=== PATIENT | male | born 1990 | race Caucasian/White ===

== ENCOUNTER 2017-05-14 20:42 | Emergency (ER) | payer MEDICAID ==
--- NOTE | 2017-05-15 00:25 | ER Document Report ---
ED General - General Mode of Arrival: Ambulatory Information source: Patient TRAVEL OUTSIDE OF THE [place] IN LAST 30 DAYS: No - HPI Onset: Other - Refer to HPI notes Similar symptoms previously: No Recently seen / treated by doctor: No - General Chief Complaint: Abscess Stated Complaint: POSSIBLE INSECT BITE Time Seen by Provider: 05/14/17 23:43 Notes: Patient is a 27-year-old male presenting to the emergency department for possible spider bite. Patient did not see either and denies any recent tick bite. Patient states that he denies any pimple about 2 days ago to his right groin. Patient states that since 2 days ago the area has increased in pain. Patient states that he has had previous I&D for abscess on his right arm and buttocks x3. Patient states he was placed on antibiotics but is unsure if his abscesses were positive for MRSA. Patient has no known allergies. Patient's PCP is Dr. Ramon. ([facility]) - Related Data Allergies/Adverse Reactions: No Known Allergies Allergy (Verified 06/22/14 00:26) Past Medical History - General Information source: Patient - Social History Smoking Status: Unknown if Ever Smoked Family History: None Patient has suicidal ideation: No Patient has homicidal ideation: No Pulmonary Medical History: Reports: Hx Bronchitis, Hx Sleep Apnea - Immunizations Hx Diphtheria, Pertussis, Tetanus Vaccination: Yes Review of Systems - Review of Systems Constitutional: No symptoms reported EENT: No symptoms reported Cardiovascular: No symptoms reported Respiratory: No symptoms reported Gastrointestinal: No symptoms reported Genitourinary: No symptoms reported Male Genitourinary: No symptoms reported Musculoskeletal: No symptoms reported Skin: See HPI Hematologic/Lymphatic: No symptoms reported Neurological/Psychological: No symptoms reported -: Yes All other systems reviewed and negative Physical Exam - Vital signs Interpretation: Hypertensive - Vital signs Vitals: Temp Pulse Resp BP Pulse Ox 99.4 F 87 18 150/99 H 97 05/14/17 20:48 05/14/17 20:48 05/14/17 20:48 05/14/17 20:48 05/14/17 20:48 - Notes Notes: GENERAL: Alert, interacts well. No acute distress. HEAD: Normocephalic, atraumatic. EYES: Appear normal. Pupils equal, round, and reactive to light. ENT: Moist mucus membranes, tongue midline. NECK: Full range of motion. Supple. Trachea midline. LUNGS: Clear to auscultation bilaterally, no wheezes, rales, or rhonchi. No respiratory distress. HEART: Regular rate and rhythm. No murmurs, gallops, or rubs. ABDOMEN: Soft, non-tender. Non-distended. Normal bowel sounds. EXTREMITIES: Moves all 4 extremities spontaneously. Normal strength. No edema. NEUROLOGICAL: Alert and oriented x3. Normal speech. No focal neurological deficits. GSC 15. PSYCH: Normal affect, normal mood. SKIN: Warm, dry, normal turgor. Small central area of induration to the right groin, no fluctuance, circular area of ecchymosis around the induration. No acute superficial spreading cellulitis, crepitus, or necrosis. This does not go into the groin or his testicular region good indurated area to his right thigh with a central area of bite araceli. It is indurated but not fluctuant he has a circular area of ecchymosis around that but no acute superficial spreading cellulitis crepitus or necrosis. This does not go into his groin or his testicular region good pulses perfusion and sensation. (BETSEY JORDAN) Course - Re-evaluation Re-evalutation: 05/15/17 00:35 Patient presents emergency department with a chief complaint I think I have a spider bite on my leg. Patient is a nondiabetic obese male patient that noticed a pimple on his inner thigh 2 days ago it is now swollen and bruised. He has no idea what bit him but mentioned a spider bite. He has had multiple abscesses in the past that required incision and drainage and has seen a surgeon in [place] for one on his sacrum. Denies knowing whether he has a history of MRSA. On examination he has an indurated area to his right thigh with a central area of bite araceli. It is indurated but not fluctuant he has a circular area of ecchymosis around that but no acute superficial spreading cellulitis crepitus or necrosis. This does not go into his groin or his testicular region good pulses perfusion and sensation. At this time it is not ready to be drained it is indurated. And give him a dose of clindamycin here start him on clindamycin 2-3 day follow-up with his primary care physician and discussed reasons for ED return sooner (MATTHEW VEGA) - Vital Signs Vital signs: Temp Pulse Resp BP Pulse Ox 99.0 F 78 16 142/84 H 98 05/15/17 00:50 05/15/17 00:50 05/15/17 00:50 05/15/17 00:50 05/15/17 00:50 Discharge - Discharge Clinical Impression: Cellulitis right inner thigh Condition: Stable Disposition: HOME, SELF-CARE Instructions: MRSA Cellulitis ([facility]) Additional Instructions: Cellulitis You have an infection of your skin and underlying soft tissues called cellulitis. This is due to bacteria, which can enter through any break in the skin, or even through an irritated hair follicle. Untreated, cellulitis will usually worsen. Antibiotics are required. Usually, warm packs or warm soaks, and elevation of the infected area are recommended. You should start getting better within 24 to 36 hours. Most infections respond quickly to the right medication. Follow-up care is important, however, to check for abscess (boil) formation, unsuspected foreign body, or resistant infection. If you develop fever, chills, or if the area of infection is becoming rapidly more swollen or painful, call the doctor at once. Follow-up with your primary care physician Dr. Ramon in 2-3 days return for increasing worsening or new symptoms Prescriptions: Clindamycin HCl 300 mg PO BID #14 capsule Forms: Return to Work Scribe Attestation: 05/15/17 00:35 I personally performed the services described in the documentation reviewed the documentation recorded by my scribe in my presence and it accurately and completely records my words and actions (MATTHEW VEGA) Scribe Documentation - Scribe Written by Andrew:: Andrew Rowe, 05/15/17 2:41 acting as scribe for :: John
[2017-05-15] MEDS ORDERED: HYDROCODONE/ACETAMINOPHEN 5-325 MG 6 TAB/DSPK PO PRN (00:37)
[2017-05-15 01:15] VITALS: BP 142/84
== END 2017-05-15 00:50 | disposition home or self-care (01) ==
LOC: ER 20:42
DX: L03.115 Cellulitis of right lower limb (principal); E66.9 Obesity, unspecified
CPT/HCPCS: 99283

== ENCOUNTER 2017-12-12 09:53 | Emergency (ER) | payer MEDICAID, OTHER ==
[2017-12-12] MEDS ORDERED: LIDOCAINE 5% (700 MG) TRANSDERMAL ADH..PATCH TP ONE (10:32)
[2017-12-12] MEDS ORDERED: KETOROLAC TROMETHAMINE 60 MG/2 ML SDV IM ONE (10:32)
[2017-12-12] MEDS ORDERED: PREDNISONE 20 MG TABLET PO ONE (10:32)
--- NOTE | 2017-12-12 10:40 | ER Document Report ---
ED General - General Chief Complaint: Back Pain Stated Complaint: LOWER BACK PAIN Time Seen by Provider: 12/12/17 10:31 TRAVEL OUTSIDE OF THE [place] IN LAST 30 DAYS: No - HPI Patient complains to provider of: Right side sciatic pain Notes: Patient with a history of sciatica states flare last few days. Patient states he did have trouble falling approximately a week ago. Patient states currently pain management has been taking his meloxicam and Flexeril however states at this time minimal relief. Patient upon my evaluation is lying on his stomach. Patient amatory here in ER. Patient states pain mostly in the right gluteus linda the going down to his right foot. Patient denies fevers chills nausea vomiting denies any urinary are bowel incontinence - Related Data Allergies/Adverse Reactions: No Known Allergies Allergy (Verified 12/12/17 10:19) Past Medical History - Social History Smoking Status: Current Every Day Smoker Frequency of alcohol use: Social Drug Abuse: Marijuana Family History: Reviewed & Not Pertinent Patient has suicidal ideation: No Patient has homicidal ideation: No Pulmonary Medical History: Reports: Hx Bronchitis, Hx Sleep Apnea Renal/ Medical History: Denies: Hx Peritoneal Dialysis - Immunizations Hx Diphtheria, Pertussis, Tetanus Vaccination: Yes Review of Systems - Review of Systems Constitutional: No symptoms reported EENT: No symptoms reported Cardiovascular: No symptoms reported Respiratory: No symptoms reported Gastrointestinal: No symptoms reported Genitourinary: No symptoms reported Male Genitourinary: No symptoms reported Musculoskeletal: Back pain Skin: No symptoms reported Hematologic/Lymphatic: No symptoms reported Neurological/Psychological: No symptoms reported Physical Exam - Vital signs Vitals: Temp Pulse Resp BP Pulse Ox 98.6 F 94 18 149/92 H 97 12/12/17 09:57 12/12/17 09:57 12/12/17 09:57 12/12/17 09:57 12/12/17 09:57 Interpretation: Normal - General General appearance: Appears well, Alert - HEENT Head: Normocephalic, Atraumatic Eyes: Normal Pupils: PERRL - Respiratory Respiratory status: No respiratory distress Chest status: Nontender Breath sounds: Normal Chest palpation: Normal - Cardiovascular Rhythm: Regular Heart sounds: Normal auscultation Murmur: No - Abdominal Inspection: Normal Distension: No distension Bowel sounds: Normal Tenderness: Nontender Organomegaly: No organomegaly - Back Back: Normal, Nontender Notes: Tenderness reproduction of symptoms palpation of middle of the right gluteus linda. Patient also has minimal right paraspinal tenderness. No numbness or tingling appreciated. Patient has no symptoms on the left - Extremities General upper extremity: Normal inspection, Nontender, Normal color, Normal ROM , Normal temperature General lower extremity: Normal inspection, Nontender, Normal color, Normal ROM , Normal temperature, Normal weight bearing. No: Josie's sign - Neurological Neuro grossly intact: Yes Cognition: Normal Orientation: AAOx4 [place] Coma Scale Eye Opening: Spontaneous David Coma Scale Verbal: Oriented [place] Coma Scale Motor: Obeys Commands [place] Coma Scale Total: 15 Speech: Normal Motor strength normal: LUE, RUE, LLE, RLE Sensory: Normal - Psychological Associated symptoms: Normal affect, Normal mood - Skin Skin Temperature: Warm Skin Moisture: Dry Skin Color: Normal Course - Re-evaluation Re-evalutation: 12/12/17 14:43 The patient presents with low back pain without signs of spinal cord compression , cauda equina syndrome, infection, aneurysm, or other serious etiology. The patient is neurologically intact. Given the extremely low risk of these diagnoses further testing and evaluation for these possibilities does not appear to be indicated at this time. The patient has been instructed to return if the symptoms worsen or change in any way. Upon evaluating the patient states the patient that I agree with this assessment acute sciatica flare. Explained that we would need to start him on medication such as steroids and anti-inflammatories. Patient responds "ya doc i know the deal just get the meds ". Review of the narcotic database shows patient is not receiving any narcotic prescriptions patient was given Ultram for pain control patient was encouraged follow-up with his pain management. - Vital Signs Vital signs: Temp Pulse Resp BP Pulse Ox 98.0 F 78 18 154/104 H 96 12/12/17 10:50 12/12/17 10:50 12/12/17 10:50 12/12/17 10:50 12/12/17 10:50 Discharge - Discharge Clinical Impression: Sciatic pain right side Condition: Good Disposition: HOME, SELF-CARE Instructions: Ice Packs ([facility]), Low Back Pain ([facility]), Oral Narcotic Medication ( [facility]), Sciatica ([facility]), Warm Packs ([facility]) Additional Instructions: Please follow-up with your primary care physician and pain management clinic. Return to the ER symptoms worsen take medications as prescribed Prescriptions: Prednisone [Deltasone] 60 mg PO DAILY #24 tablet Tramadol HCl [Ultram 50 mg Tablet] 50 mg PO ASDIR PRN #20 tablet PRN Reason: Forms: Return to Work Referrals: MARCOS MERAZ MD [Primary Care Provider] - Follow up as needed
[2017-12-12 10:54] VITALS: BP 154/104
== END 2017-12-12 10:54 | disposition home or self-care (01) ==
LOC: ER 09:53
DX: M54.41 Lumbago with sciatica, right side (principal); F17.200 Nicotine dependence, unspecified, uncomplicated
CPT/HCPCS: 99283; 96372; J1885; J3490; J7512

== ENCOUNTER 2018-02-17 14:38 | Emergency (ER) | payer MEDICAID, OTHER ==
[2018-02-17] MEDS ORDERED: KETOROLAC TROMETHAMINE INJ/PF 30 MG/1 ML SDV IM ONE (15:35)
[2018-02-17] MEDS ORDERED: CYCLOBENZAPRINE HCL 10 MG TABLET PO ONE (15:35)
[2018-02-17] MEDS ORDERED: DEXAMETHASONE SOD PHOS INJ 10 MG/1 ML VIAL IM ONE (15:35)
[2018-02-17 15:38] VITALS: BP 149/99
--- NOTE | 2018-02-17 15:41 | ER Document Report ---
ED Neck/Back Problem - General Chief Complaint: Low Back Pain Stated Complaint: BACK PAIN Time Seen by Provider: 02/17/18 15:20 Mode of Arrival: Ambulatory Information source: Patient Notes: 28-year-old male presented to ED for complaint of chronic back pain. He states she is unable to see his pain management today and came to the ER for any kind of pain relief he could get. He states he has no new injury this is a flareup of his chronic pain. Is no numbness or tingling to the legs no loss of control of bowel bladder no saddle anesthesia. He states the pain increased on third and a child uses normal pain medicine but nothing was helping. TRAVEL OUTSIDE OF THE [place] IN LAST 30 DAYS: No - HPI Patient complains to provider of: Lower back Onset: Other - Chronic started increasing on Onset: Chronic Timing: Still present Quality of pain: Sharp, Throbbing Severity: Severe Pain Level: 5 Recent injury: No Associated symptoms: Like prior neck/back pain, Radiation to leg, Lower back pain. denies: Radiation to arm, Radiation to chest, Sensory loss, Unable to urinate, Upper back pain Exacerbated by: Movement of trunk, Sitting position Relieved by: Nothing Similar symptoms previously: Yes Recently seen / treated by doctor: Yes - Related Data Allergies/Adverse Reactions: No Known Allergies Allergy (Verified 02/17/18 14:40) Past Medical History - General Information source: Patient - Social History Smoking Status: Current Every Day Smoker Cigarette use (# per day): Yes - Cigarettes a day Chew tobacco use (# tins/day): No Smoking Education Provided: Yes - 4 minutes Frequency of alcohol use: Social Drug Abuse: Marijuana - Daily Lives with: Spouse/Significant other Family History: Reviewed & Not Pertinent Patient has suicidal ideation: No Patient has homicidal ideation: No - Past Medical History Cardiac Medical History: Reports: None Pulmonary Medical History: Reports: Hx Bronchitis, Hx Sleep Apnea Neurological Medical History: Reports: None Endocrine Medical History: Reports: None Renal/ Medical History: Reports: None Malignancy Medical History: Reports None GI Medical History: Reports: None Musculoskeltal Medical History: Reports Hx Arthritis, Reports Hx Musculoskeletal Deformity, Reports Hx Musculoskeletal Trauma Skin Medical History: Reports None Psychiatric Medical History: Reports: None Infectious Medical History: Reports: None Surgical Hx: Negative Past Surgical History: Reports: None - Immunizations Hx Diphtheria, Pertussis, Tetanus Vaccination: Yes Review of Systems - Review of Systems Constitutional: No symptoms reported EENT: No symptoms reported Cardiovascular: No symptoms reported Respiratory: No symptoms reported Gastrointestinal: No symptoms reported Genitourinary: No symptoms reported Male Genitourinary: No symptoms reported Musculoskeletal: Back pain, Muscle pain, Muscle stiffness Skin: No symptoms reported Hematologic/Lymphatic: No symptoms reported Neurological/Psychological: No symptoms reported Physical Exam - Vital signs Vitals: Temp Pulse Pulse Ox 98.9 F 80 97 02/17/18 14:58 02/17/18 14:58 02/17/18 14:58 Interpretation: Normal - General General appearance: Appears well, Alert - HEENT Head: Normocephalic, Atraumatic Eyes: Normal Pupils: PERRL - Respiratory Respiratory status: No respiratory distress Chest status: Nontender Breath sounds: Normal Chest palpation: Normal - Cardiovascular Rhythm: Regular Heart sounds: Normal auscultation Murmur: No - Abdominal Inspection: Normal Distension: No distension Bowel sounds: Normal Tenderness: Nontender Organomegaly: No organomegaly - Back Back: Normal, Tender, Vertebra tenderness. No: Deformity/step-off, CVA tenderness, Scars, Scoliosis, Wounds - Extremities General upper extremity: Normal inspection, Nontender, Normal color, Normal ROM , Normal temperature General lower extremity: Normal inspection, Nontender, Normal color, Normal ROM , Normal temperature, Normal weight bearing. No: Josie's sign - Neurological Neuro grossly intact: Yes Cognition: Normal Orientation: AAOx4 [place]enn[place] Coma Scale Eye Opening: Spontaneous [place]enn[place] Coma Scale Verbal: Oriented David Coma Scale Motor: Obeys Commands David Coma Scale Total: 15 Speech: Normal Motor strength normal: LUE, RUE, LLE, RLE Sensory: Normal - Psychological Associated symptoms: Normal affect, Normal mood - Skin Skin Temperature: Warm Skin Moisture: Dry Skin Color: Normal Course - Re-evaluation Re-evalutation: 02/17/18 15:41 After performing a Medical Screening Examination, I estimate there is LOW risk for EXPANDING OR RUPTURED ABDOMINAL AORTIC ANEURYSM, CAUDA EQUINA SYNDROME, EPIDURAL MASS LESION, or HERNIATED DISK CAUSING SEVERE SPINAL STENOSIS, thus I consider the discharge disposition reasonable. I have reevaluated this patient multiple times and no significant life threatening changes are noted. The patient and I have discussed the diagnosis and risks, and we agree with discharging home and close follow-up. We also discussed returning to the Emergency Department immediately if new or worsening symptoms occur with the understanding that symptoms and presentations can change. We have discussed the symptoms which are most concerning (e.g., saddle anesthesia, urinary or bowel incontinence or retention, changing or worsening pain) that necessitate immediate return. - Vital Signs Vital signs: Temp Pulse Resp BP Pulse Ox 98.9 F 80 149/99 H 97 02/17/18 14:58 02/17/18 14:58 02/17/18 15:37 02/17/18 14:58 Discharge - Discharge Clinical Impression: Chronic low back pain with bilateral sciatica Qualifiers: Back pain laterality: bilateral Qualified Code(s): M54.42 - Lumbago with sciatica, left side Condition: Stable Disposition: HOME, SELF-CARE Instructions: Family Physicians / Practices Additional Instructions: Chronic Pain Control Stress, inactivity, and depression make pain more severe regardless of the cause of the pain. Stress and poor physical condition can cause pain such as headaches and backache. Relaxation: Rest in a quiet place with your eyes closed for 20 minutes twice daily. Concentrate on a pleasant image, or simply "feel" your breathing. Clear your mind. Stress management: Deal with your "stressors." Either take action, or eliminate the stressor from your life. Don't let things hang over you. Accept those things you can't change. Nutrition: Eat small, balanced meals -- don't skip, don't overeat. Meals should be high-carbohydrate, low-sugar, low-fat. Exercise: Exercise helps painful conditions and eases stress. Get 30 minutes of moderate exercise, five days a week. Do an activity that does not flare your pain. Precautions: Pain which continues to disrupt daily activities, or which changes in nature, requires a medical evaluation. Pain Clinic referral is available. We do not manage chronic pain in the Emergency Department. We will try to appropriately help you through an acute flare of your chronic painful condition , but for on-going chronic pain that does not improve, you will need to see your private doctor or powder coat painter. We do not provide repeated medication management of chronic painful conditions. If you wish, we can provide the name of local pain management physicians. Chronic Back Pain Chronic back pain (pain persisting longer than three months) is a common problem. A medical evaluation can look for herniated disc, arthritis, osteoporosis, tumors, and infections. But at least half the time, there's no obvious treatable cause. Anxiety and depression tend to worsen back pain. Ibuprofen or other anti-inflammatory medicine can help. A heating pad, used for 15-20 minutes at a time, can ease pain. For this type of back pain, narcotic medicines should be avoided. Muscle relaxers are rarely helpful unless you're having spasms. Activity is important. Find an aerobic exercise program that your back can tolerate. Too much rest makes back pain worse. Specific back exercises are usually prescribed to strengthen the back and abdominal muscles. Often, a physical therapist can help. Avoid heavy lifting, working while bent over, or standing with both knees straight. Most back pain patients do better with a firm mattress. If new symptoms of a "herniated disc" (radiation of pain, numbness, or tingling down the back of the leg or weakness in the leg) occur, you should be re-examined. Toradol Injection You have been given an injection of ketorolac tromethamine (Toradol). This is an excellent, safe drug for pain control. It also has potent antiinflammatory action. You should have significant pain relief within about one hour. Toradol is not addicting and is non-sedating. It does not interfere with driving or work. Call or return if you develop itching, hives, shortness of breath, or rash. STEROID MEDICATION: You have been given an injection of medicine of the cortisone/steroid class. This medication is used to control inflammation or allergy. It is often continued as a pill for a short period of time, until the acute process subsides. There are usually no side effects from short-term use of cortisone-like medications. Some persons feel an increased sense of well-being and are not sleepy at bedtime. Long-term use of cortisone medications is best avoided, unless required for a severe condition. If your condition does not remit, or relapses after the course of corticosteroid medication, you should consult your physician. Stretching Exercises for the Back The physician has recommended that you begin stretching exercises for your back. These are often used even while the back is painful. However, you should notify the physician if the activities seem to increase your pain. PELVIC TILT: Lie flat on your back with knees bent. Tighten your stomach and buttock muscles so it flattens your lower back against the floor. Hold 10 seconds. Repeat 10 times, twice daily. KNEE RAISE: Lying on the back with knees bent, raise one knee to your chest, then the other. Hold both knees against the chest 10 seconds, then lower one knee at a time. Repeat 10 times, twice daily. PARTIAL TRUNK RAISE: Lie face down, arms at your sides. Keeping your waist on the floor, use your arms raise your chest up. Support yourself on your elbows for 30 seconds. Repeat twice daily, increasing the time to two minutes as you recover. MUSCLE RELAXERS: Muscle relaxing medications are usually prescribed for acute muscle spasm or injury to the neck and back. They are often combined with antiinflammatory pain medication for increased relief. You may stop the muscle relaxer when the pain and stiffness have improved. Start the medication again if spasms recur. Muscle relaxers may cause drowsiness, especially with the first dose. Do not operate machinery or drive while under the effects of the medication. Most muscle relaxers last up to 24 hours. Do not combine the medication with alcohol. ICE PACKS: Apply ice packs frequently against the painful area. Many different schedules are recommended, such as "20 minutes on, 20 minutes off" or "one hour ice, two hours rest." If you need to work, you may need to go longer between ice treatments. You should plan to have the area ice packed AT LEAST one fourth of the time. The ice should be applied over the wrap, tape, or splint, or over a layer of cloth -- not directly against the skin. Some ice bags have a built-in cloth and can be put directly on the skin. WARM PACKS: After approximately two days, apply gentle heat (such as a heating pad or hot water bottle) for about 20 to 30 minutes about every two hours -- at least four times daily. Warmth and elevation will help you make a more rapid recovery , and will ease the pain considerably. Do not use HOT heat, and never apply heat for longer than 30 minutes. The continuous heat can invisibly damage skin and muscles -- even when no burn is seen on the surface. Damaged muscles can make you MORE sore. FOLLOW-UP CARE: If you have been referred to a physician for follow-up care, call the physician s office for an appointment as you were instructed or within the next two days. If you experience worsening or a significant change in your symptoms, notify the physician immediately or return to the Emergency Department at any time for re-evaluation. Please be sure to keep your appointment with your chronic pain management tomorrow. Have given you a list of the local primary doctors please find somebody to follow-up with your blood pressure. Forms: Smoking Cessation Education, Elevated Blood Pressure
== END 2018-02-17 15:48 | disposition home or self-care (01) ==
LOC: ER 14:38
DX: G89.29 Other chronic pain (principal); M54.42 Lumbago with sciatica, left side; M54.41 Lumbago with sciatica, right side; F17.210 Nicotine dependence, cigarettes, uncomplicated; Z71.6 Tobacco abuse counseling
CPT/HCPCS: 99406; 99283; 96372; J3490; J1885; J1100

== ENCOUNTER 2018-06-10 06:56 | Emergency (ER) | payer MEDICAID ==
--- NOTE | 2018-06-10 08:01 | ER Document Report ---
HPI - HPI Patient complains to provider of: low back pain Onset: Other - 2 days Pain Level: 5 Context: 28 yo obese male with exacerbation of chronic intermittent low back pain for 2 days. Worse with movement. Thinks he strained it. No fever or chills, no IV drug use, no radiculopathy or saddle anesthesia, no hx cancer. Associated Symptoms: None Exacerbated by: Movement Relieved by: Denies Similar symptoms previously: Yes Recently seen / treated by doctor: No - ROS ROS below otherwise negative: Yes Systems Reviewed and Negative: Yes All other systems reviewed and negative Past Medical History - General Information source: Patient - Social History Smoking Status: Never Smoker Lives with: Family Family History: Reviewed & Not Pertinent Patient has suicidal ideation: No Patient has homicidal ideation: No Pulmonary Medical History: Reports: Hx Bronchitis, Hx Sleep Apnea Renal/ Medical History: Denies: Hx Peritoneal Dialysis Musculoskeletal Medical History: Reports Hx Arthritis, Reports Hx Musculoskeletal Deformity, Reports Hx Musculoskeletal Trauma Surgical Hx: Negative - Immunizations Hx Diphtheria, Pertussis, Tetanus Vaccination: Yes Vertical Provider Document - CONSTITUTIONAL Agree With Documented VS: Yes Exam Limitations: No Limitations General Appearance: No Apparent Distress - INFECTION CONTROL TRAVEL OUTSIDE OF THE [place] IN LAST 30 DAYS: No - NECK Neck: Supple - BACK Back: Normal Inspection Notes: tender lumbar paraspinal muscles - MUSCULOSKELETAL/EXTREMETIES Musculoskeletal/Extremeties: [place] ORO - NEURO Level of Consciousness: Awake Motor/Sensory: No Motor Deficit, No Sensory Deficit Deep Tendon Reflexes: 2+ - bilateral patellar and ankle - DERM Integumentary: No Rash Course - Vital Signs Vital signs: Temp Pulse Resp BP Pulse Ox 97.8 F 74 16 152/106 H 94 06/10/18 07:03 06/10/18 07:03 06/10/18 07:03 06/10/18 07:03 06/10/18 07:03 Discharge - Discharge Clinical Impression: Exacerbation intermittent low back pain Condition: Good Disposition: HOME, SELF-CARE Instructions: Low Back Pain ([facility]), Muscle Relaxers ([facility]), Muscle Strain ([facility]), Steroid Medication Injection, Warm Packs ([facility]) Additional Instructions: warm compress Tylenol up to 4000 mg a day for pain Motrin 800 mg 3 times a day for pain and inflammation Flexeril 10 mg 3-day for muscle spasms Return to the emergency room for any worsening of the symptoms or any concerns. Referral to family practice doctor since she do not have one anymore. Prescriptions: Ibuprofen [Motrin 800 mg Tablet] 800 mg PO Q8HP PRN #30 tablet PRN Reason: Cyclobenzaprine HCl [Flexeril 10 Mg Tablet] 10 mg PO TIDP PRN #20 tablet PRN Reason: Tramadol HCl [Ultram 50 mg Tablet] 50 mg PO ASDIR PRN #15 tablet PRN Reason: Forms: Return to Work Referrals: DINORA DIAZ MD [ACTIVE STAFF] - Follow up as needed
[2018-06-10] MEDS ORDERED: KETOROLAC TROMETHAMINE 60 MG/2 ML SDV IM ONE (09:18)
[2018-06-10] MEDS ORDERED: DEXAMETHASONE SOD PHOS INJ 10 MG/1 ML VIAL IM ONE (09:18)
[2018-06-10 09:40] VITALS: BP 149/103
== END 2018-06-10 09:40 | disposition home or self-care (01) ==
LOC: ER 06:56
DX: G89.29 Other chronic pain (principal); M54.5 Low back pain
CPT/HCPCS: 99283; 96372; J1885; J1100

== ENCOUNTER 2018-07-24 20:38 | Emergency (ER) | payer SELFPAY ==
[2018-07-24] MEDS ORDERED: IBUPROFEN 800 MG TABLET PO ONE (22:49)
--- NOTE | 2018-07-24 23:19 | RADIOLOGY REPORT (SQ) ---
Lumbar spine five views HISTORY: Low back pain. FINDINGS: Vertebral body heights are intact. Alignment is intact. No subluxation. Pedicles are intact. IMPRESSION: No fracture.
--- NOTE | 2018-07-24 23:19 | RADIOLOGY REPORT (SQ) ---
CLINICAL HISTORY: fell 2 days ago pain low back and left toe COMPARISON: None. TECHNIQUE: XR FOOT 3 OR MORE VIEWS 07/24/2018 10:49 PM CDT FINDINGS: There is suggestion of a nondisplaced fracture transversely through the distal fifth phalanx. Joint spaces are preserved. Soft tissues are unremarkable. IMPRESSION: Possible distal fifth phalanx fracture. Correlate with point tenderness in this area.
--- NOTE | 2018-07-25 00:08 | ER Document Report ---
ED Neck/Back Problem - General Chief Complaint: Back Pain Stated Complaint: BACK PAIN Time Seen by Provider: 07/24/18 22:42 Mode of Arrival: Ambulatory Information source: Patient Notes: 28-year-old male presented ED for complaint of back pain after tripping and falling 2 days ago. Patient has a long history of chronic back pain. He also had complaints of pain to his left fifth toe. He states it hurts a little when he walks but he is able to ambulate with no difficulty. TRAVEL OUTSIDE OF THE [place] IN LAST 30 DAYS: No - HPI Patient complains to provider of: Pain, Lower back Onset: Other Where: Outdoors Onset: Chronic Timing: Still present Quality of pain: Achy Severity: Moderate Pain Level: 4 Context: Fall/near-fall Recent injury: Possibly Associated symptoms: Lower back pain, Other - Pain to the left fifth toe Exacerbated by: Movement of trunk, Sitting position, Other - Walking Relieved by: Nothing Similar symptoms previously: Yes - Related Data Allergies/Adverse Reactions: No Known Allergies Allergy (Verified 02/17/18 14:40) Past Medical History - General Information source: Patient - Social History Smoking Status: Former Smoker Cigarette use (# per day): No Chew tobacco use (# tins/day): No Smoking Education Provided: No Frequency of alcohol use: Occasional Drug Abuse: Other - States he used using the oil from marijuana Occupation: [employer] Lives with: Family Family History: Reviewed & Not Pertinent Patient has suicidal ideation: No Patient has homicidal ideation: No - Past Medical History Cardiac Medical History: Reports: None Pulmonary Medical History: Reports: Hx Bronchitis, Hx Sleep Apnea EENT Medical History: Reports: None Neurological Medical History: Reports: None Endocrine Medical History: Reports: None Renal/ Medical History: Reports: None Malignancy Medical History: Reports None GI Medical History: Reports: None Musculoskeletal Medical History: Reports Hx Arthritis, Reports Hx Musculoskeletal Deformity, Reports Hx Musculoskeletal Trauma Skin Medical History: Reports None Psychiatric Medical History: Reports: None Traumatic Medical History: Reports: Hx Fractures - 5th toe Infectious Medical History: Reports: None Past Surgical History: Reports: Other - Pilonidal cyst removal - Immunizations Hx Diphtheria, Pertussis, Tetanus Vaccination: Yes Review of Systems - Review of Systems Constitutional: No symptoms reported EENT: No symptoms reported Cardiovascular: No symptoms reported Respiratory: No symptoms reported Gastrointestinal: No symptoms reported Genitourinary: No symptoms reported Male Genitourinary: No symptoms reported Musculoskeletal: Back pain, Muscle pain, Muscle stiffness, Other - Pain to the left fifth toe Skin: No symptoms reported Hematologic/Lymphatic: No symptoms reported Neurological/Psychological: No symptoms reported -: Yes All other systems reviewed and negative Physical Exam - Vital signs Vitals: Temp Pulse Resp BP Pulse Ox 99.0 F 87 18 163/102 H 98 07/24/18 20:53 07/24/18 20:53 07/24/18 20:53 07/24/18 20:53 07/24/18 20:53 Interpretation: Normal - General General appearance: Appears well, Alert - HEENT Head: Normocephalic, Atraumatic Eyes: Normal Pupils: PERRL - Respiratory Respiratory status: No respiratory distress Chest status: Nontender Breath sounds: Normal Chest palpation: Normal - Cardiovascular Rhythm: Regular Heart sounds: Normal auscultation Murmur: No - Abdominal Inspection: Normal Distension: No distension Bowel sounds: Normal Tenderness: Nontender Organomegaly: No organomegaly - Back Back: Normal, Tender, Vertebra tenderness - The pain is to the left and right lower back muscles very minimal tenderness to the lumbar spine. No signs or symptoms of cauda equina, no loss of control of bowel or bladder seizure, no loss of control of lower extremities or any loss of sensation to lower extremities. - Extremities General upper extremity: Normal inspection, Nontender, Normal color, Normal ROM , Normal temperature General lower extremity: Normal color, Normal ROM, Normal temperature, Normal weight bearing. No: Josie's sign Foot: Tender, Ecchymosis - Left fifth toe left fifth toe, No evidence of FB. No : Metatarsal compress. pain, Tender 5th metatarsal, Unable to bear weight - Neurological Neuro grossly intact: Yes Cognition: Normal Orientation: AAOx4 David Coma Scale Eye Opening: Spontaneous [place] Coma Scale Verbal: Oriented David Coma Scale Motor: Obeys Commands David Coma Scale Total: 15 Speech: Normal Motor strength normal: LUE, RUE, LLE, RLE Sensory: Normal - Psychological Associated symptoms: Normal affect, Normal mood - Skin Skin Temperature: Warm Skin Moisture: Dry Skin Color: Normal, Ecchymosis - Mild to the left fifth toe Course - Re-evaluation Re-evalutation: 07/25/18 01:52 X-rays were discussed with patient and written report of x-rays given the patient. The left fifth toe was mela taped to the left fourth toe for a possible fifth toe fracture. Patient was instructed to follow-up with orthopedics if he continued having pain. Patient is will ambulate with no difficulty. Patient was instructed in use of Tylenol Motrin for his back pain as well as given a prescription for ibuprofen and muscle relaxers. Patient was instructed on use of hot packs and cold packs. Patient was instructed to do back exercises to decrease the pain. - Vital Signs Vital signs: Temp Pulse Resp BP Pulse Ox 98.4 F 73 18 149/96 H 97 07/25/18 00:27 07/25/18 00:27 07/25/18 00:27 07/25/18 00:27 07/25/18 00:27 - Diagnostic Test Radiology reviewed: Image reviewed, Reports reviewed Discharge - Discharge Clinical Impression: Chronic back pain Qualifiers: Back pain location: low back pain Back pain laterality: bilateral Sciatica presence: with sciatica Sciatica laterality: bilateral sciatica Qualified Code(s ): M54.42 - Lumbago with sciatica, left side Fracture of fifth toe, left, closed Qualifiers: Encounter type: initial encounter Qualified Code(s): S92.502A - Displaced unspecified fracture of left lesser toe(s), initial encounter for closed fracture Condition: Stable Disposition: HOME, SELF-CARE Instructions: Family Physicians / Practices Additional Instructions: Fractured Toe You have fractured your toe. Although this fracture doesn't need a cast or splint, emergency evaluation was needed to assess the straightness of the bones and joints. Reduction ("setting") is necessary for toe fractures which are crooked or twisted. A toe fracture will heal in about three weeks. Usually, the fractured toe is taped to the next toe. The second toe acts as a moving splint to protect the broken one. Ice and elevation help during the first 48 hours. You may need crutches at first if walking is painful. When you begin walking, be careful NOT to do things that hurt. If weight bearing is not comfortable within a few days, you may require a special shoe, walking boot, or cast. Call the doctor or return at once if severe swelling, severe pain, or numbness develop in the toe, or if you suspect you may have re-injured it. Chronic Back Pain Chronic back pain (pain persisting longer than three months) is a common problem. A medical evaluation can look for herniated disc, arthritis, osteoporosis, tumors, and infections. But at least half the time, there's no obvious treatable cause. Anxiety and depression tend to worsen back pain. Ibuprofen or other anti-inflammatory medicine can help. A heating pad, used for 15-20 minutes at a time, can ease pain. For this type of back pain, narcotic medicines should be avoided. Muscle relaxers are rarely helpful unless you're having spasms. Activity is important. Find an aerobic exercise program that your back can tolerate. Too much rest makes back pain worse. Specific back exercises are usually prescribed to strengthen the back and abdominal muscles. Often, a physical therapist can help. Avoid heavy lifting, working while bent over, or standing with both knees straight. Most back pain patients do better with a firm mattress. If new symptoms of a "herniated disc" (radiation of pain, numbness, or tingling down the back of the leg or weakness in the leg) occur, you should be re-examined. Ibuprofen Ibuprofen is an excellent, safe drug for pain control. In addition, it has potent antiinflammatory effects which are beneficial, especially in the treatment of injuries, arthritis, or tendonitis. It's best to take ibuprofen with food. Persons with ulcer disease or allergy to aspirin should notify their physician of this before taking ibuprofen. Take the medication exactly as prescribed. Don't take additional doses unless instructed to do so by your doctor. If you develop wheezing, shortness of breath, hives, faintness, stomach pain, vomiting, or dark black stools, return for re-evaluation at once. MUSCLE RELAXERS: Muscle relaxing medications are usually prescribed for acute muscle spasm or injury to the neck and back. They are often combined with antiinflammatory pain medication for increased relief. You may stop the muscle relaxer when the pain and stiffness have improved. Start the medication again if spasms recur. Muscle relaxers may cause drowsiness, especially with the first dose. Do not operate machinery or drive while under the effects of the medication. Most muscle relaxers last up to 24 hours. Do not combine the medication with alcohol. ICE PACKS: Apply ice packs frequently against the painful area. Many different schedules are recommended, such as "20 minutes on, 20 minutes off" or "one hour ice, two hours rest." If you need to work, you may need to go longer between ice treatments. You should plan to have the area ice packed AT LEAST one fourth of the time. The ice should be applied over the wrap, tape, or splint, or over a layer of cloth -- not directly against the skin. Some ice bags have a built-in cloth and can be put directly on the skin. WARM PACKS: After approximately two days, apply gentle heat (such as a heating pad or hot water bottle) for about 20 to 30 minutes about every two hours -- at least four times daily. Warmth and elevation will help you make a more rapid recovery , and will ease the pain considerably. Do not use HOT heat, and never apply heat for longer than 30 minutes. The continuous heat can invisibly damage skin and muscles -- even when no burn is seen on the surface. Damaged muscles can make you MORE sore. FOLLOW-UP CARE: If you have been referred to a physician for follow-up care, call the physician s office for an appointment as you were instructed or within the next two days. If you experience worsening or a significant change in your symptoms, notify the physician immediately or return to the Emergency Department at any time for re-evaluation. Prescriptions: Ibuprofen 800 mg PO Q8HP PRN #20 tablet PRN Reason: Cyclobenzaprine HCl [Flexeril 10 mg Tablet] 10 mg PO TIDP PRN #15 tab PRN Reason: Forms: Elevated Blood Pressure, Return to Work
[2018-07-25 00:27] VITALS: BP 149/96
== END 2018-07-25 00:27 | disposition home or self-care (01) ==
LOC: ER 20:38
DX: M54.42 Lumbago with sciatica, left side (principal); S92.502A Displaced unspecified fracture of left lesser toe(s), initial encounter for closed fracture; W01.0XXA Fall on same level from slipping, tripping and stumbling without subsequent striking against object, initial encounter
CPT/HCPCS: 72110; 99283

== ENCOUNTER 2018-09-08 11:10 | Emergency (ER) | payer SELFPAY ==
--- NOTE | 2018-09-08 12:19 | ER Document Report ---
ED Medical Screen (RME) - General Chief Complaint: Pain With Urination Stated Complaint: BLOOD IN URINE Time Seen by Provider: 09/08/18 12:11 Mode of Arrival: Ambulatory Information source: Patient Notes: Patient presents emergency department with complaints of urinating blood. Reports feels like he is voiding razors. Reports on Saturday night he felt a little testicular pain like someone had kicked him in the genitals. Area is still sore. Denies lifting heavy objects. He denies trauma. Reports some left -sided flank pain. He reports pain started this morning when voiding. Denies being sexually active. Reports he is a single dad of 3. Also denies fever vomiting diarrhea. Reports this never happened before to him. I have greeted and performed a rapid initial assessment of this patient. A comprehensive ED assessment and evaluation of the patient, analysis of test results and completion of the medical decision making process will be conducted by additional ED providers. TRAVEL OUTSIDE OF THE [place] IN LAST 30 DAYS: No - Related Data Allergies/Adverse Reactions: No Known Allergies Allergy (Verified 09/08/18 11:11) Past Medical History - Social History Chew tobacco use (# tins/day): No Frequency of alcohol use: None Drug Abuse: None Pulmonary Medical History: Reports: Hx Bronchitis, Hx Sleep Apnea Renal/ Medical History: Denies: Hx Peritoneal Dialysis Musculoskeltal Medical History: Reports Hx Arthritis, Reports Hx Musculoskeletal Deformity, Reports Hx Musculoskeletal Trauma Traumatic Medical History: Reports: Hx Fractures - 5th toe Past Surgical History: Reports: Other - Pilonidal cyst removal - Immunizations Hx Diphtheria, Pertussis, Tetanus Vaccination: Yes History of Influenza Vaccine for 07/2017 - 12/2017 Season: No Physical Exam - Vital signs Vitals: Temp Pulse Resp BP Pulse Ox 98.8 F 74 16 154/102 H 96 09/08/18 11:19 09/08/18 11:19 09/08/18 11:19 09/08/18 11:19 09/08/18 11:19 Course - Vital Signs Vital signs: Temp Pulse Resp BP Pulse Ox 98.8 F 74 16 154/102 H 96 09/08/18 11:19 09/08/18 11:19 09/08/18 11:19 09/08/18 11:19 09/08/18 11:19
[2018-09-08 13:43] LABS: APPEARANCE,URINE CLEAR; BILIRUBIN,URINE NEGATIVE (NEGATIVE); COLOR,URINE STRAW; GLUCOSE, URINE NEGATIVE (NEGATIVE); KETONES,URINE NEGATIVE (NEGATIVE); LEUKOCYTE ESTERASE,URINE TRACE (NEGATIVE); NITRITE,URINE NEGATIVE (NEGATIVE); PROTEIN,URINE NEGATIVE (NEGATIVE); URINE SPECIFIC GRAVITY 1.012; UROBILINOGEN,URINE NEGATIVE mg/dL (<2.0)
--- NOTE | 2018-09-08 13:43 | RADIOLOGY REPORT (SQ) ---
EXAM DESCRIPTION: U/S SCROTUM W/DOPPLER COMPLETED DATE/TIME: 09/08/2018 1:22 pm REASON FOR STUDY: TESTICULAR PAIN COMPARISON: None. TECHNIQUE: Static and realtime lehman scale imaging of the scrotum and testes. Selected color Doppler and spectral images recorded to document blood flow. LIMITATIONS: None. FINDINGS: RIGHT: TESTICLE: Normal size. Normal echotexture. Normal blood flow. No mass. EPIDIDYMIS: Small epididymal cysts. HYDROCELE OR VARICOCELE: No. HERNIA OR EXTRA-TESTICULAR MASS: No. OTHER: No other significant finding. LEFT: TESTICLE: Normal size. Normal echotexture. Normal blood flow. No mass. EPIDIDYMIS: Normal. HYDROCELE OR VARICOCELE: No. HERNIA OR EXTRA-TESTICULAR MASS: No. OTHER: 1.4 by 1.7 cm lymph node in the left groin. IMPRESSION: No torsion. No testicular mass. Prominent left groin lymph node. TECHNICAL DOCUMENTATION: JOB ID: [id number] [employer]- All Rights Reserved Reading location - IP/workstation name: [email or web address]
--- NOTE | 2018-09-08 14:39 | ER Document Report ---
ED GI/ - General Chief Complaint: Pain With Urination Stated Complaint: BLOOD IN URINE Time Seen by Provider: 09/08/18 12:11 Mode of Arrival: Ambulatory Information source: Patient TRAVEL OUTSIDE OF THE [place] IN LAST 30 DAYS: No - HPI Patient complains to provider of: Dysuria, Hematuria Onset: Yesterday Timing/Duration: Persistent Quality of pain: Sharp, Stabbing Severity at maximum: Severe Severity in ED: Mild Pain Level: 1 Associated symptoms: Dysuria, Hematuria Exacerbated by: Denies Relieved by: Denies Similar symptoms previously: No Recently seen / treated by doctor: No Notes: 09/08/18 14:45 Patient is a 28-year-old otherwise healthy male presenting to the emergency room complaining of hematuria that started yesterday, states he noted a large string-like of blood clot that he passed through his urethra sometime yesterday , he has been having painful urination as well, states he has been drinking a lot of Gatorade but minimal water intake, also drink some cranberry juice yesterday when his symptoms started, denies any fever, no nausea, vomiting or diarrhea, normal bowel movement yesterday, pain radiates down into his testicles at times, he denies a history of similar symptoms previously, no history of kidney stones previously, denies any penile discharge, denies any concern for any sexually transmitted diseases he is not had unprotected sex recently - Related Data Allergies/Adverse Reactions: No Known Allergies Allergy (Verified 09/08/18 11:11) Past Medical History - General Information source: Patient - Social History Smoking Status: Never Smoker Chew tobacco use (# tins/day): No Frequency of alcohol use: None Drug Abuse: None Family History: Reviewed & Not Pertinent Patient has suicidal ideation: No Patient has homicidal ideation: No Pulmonary Medical History: Reports: Hx Bronchitis, Hx Sleep Apnea Renal/ Medical History: Denies: Hx Peritoneal Dialysis Musculoskeletal Medical History: Reports Hx Arthritis, Reports Hx Musculoskeletal Deformity, Reports Hx Musculoskeletal Trauma Traumatic Medical History: Reports: Hx Fractures - 5th toe Past Surgical History: Reports: Other - Pilonidal cyst removal - Immunizations Hx Diphtheria, Pertussis, Tetanus Vaccination: Yes Review of Systems - Review of Systems Constitutional: No symptoms reported EENT: No symptoms reported Cardiovascular: No symptoms reported Respiratory: No symptoms reported Gastrointestinal: No symptoms reported Genitourinary: Hematuria Male Genitourinary: See HPI Musculoskeletal: No symptoms reported Skin: No symptoms reported Hematologic/Lymphatic: No symptoms reported Neurological/Psychological: No symptoms reported -: Yes All other systems reviewed and negative Physical Exam - Vital signs Vitals: Temp Pulse Resp BP Pulse Ox 98.8 F 74 16 154/102 H 96 09/08/18 11:19 09/08/18 11:19 09/08/18 11:19 09/08/18 11:19 09/08/18 11:19 - Notes Notes: - General General appearance: Appears well, Alert In distress: None - HEENT Head: Normocephalic, Atraumatic Eyes: Normal Conjunctiva: Normal Extraocular movements intact: Yes Eyelashes: Normal Pupils: PERRL - Respiratory Respiratory status: No respiratory distress - Cardiovascular Rhythm: Regular - Abdominal Inspection: Normal - Back Back: Normal - Extremities General upper extremity: Normal inspection General lower extremity: Normal inspection - Neurological Neuro grossly intact: Yes Orientation: AAOx4 [place] Coma Scale Eye Opening: Spontaneous David Coma Scale Verbal: Oriented [place] Coma Scale Motor: Obeys Commands [place] Coma Scale Total: 15 - Psychological Associated symptoms: Normal affect, Normal mood - Skin Skin Temperature: Warm Skin Moisture: Dry Skin Color: Normal Course - Re-evaluation Re-evalutation: 09/08/18 14:48 Symptoms consistent with urinary tract infection, urinalysis does show trace leukocyte esterase with 4 WBCs and only 2 RBCs, scrotal ultrasound shows enlarged lymph nodes in the left groin, but no evidence of torsion or mass, findings discussed with patient at bedside, I did discuss the possibility of him having a recently passed kidney stone since he did have some sharp stabbing pain in his pelvic area on Saturday, I also discussed the possibility of obtaining a CT scan today, however since patient is listed as a self-pay and does not currently have confirmed insurance he is agreeable to discharge home with antibiotics for treatment of a urinary tract infection and otherwise watchful waiting, he was advised to return immediately if his symptoms worsen or fail to improve in 2-3 days time, patient acknowledges understanding and agreement with this plan - Vital Signs Vital signs: Temp Pulse Resp BP Pulse Ox 98.8 F 74 16 154/102 H 96 09/08/18 11:19 09/08/18 11:19 09/08/18 11:19 09/08/18 11:19 09/08/18 11:19 - Laboratory Laboratory results interpreted by me: 09/08/18 12:44 Ur Leukocyte Esterase TRACE H Urine Ascorbic Acid 40 H - Diagnostic Test Radiology reviewed: Image reviewed, Reports reviewed Discharge - Discharge Clinical Impression: Hematuria Qualifiers: Hematuria type: gross Qualified Code(s): R31.0 - Gross hematuria Urinary tract infection Qualifiers: Urinary tract infection type: site unspecified Hematuria presence: with hematuria Qualified Code(s): N39.0 - Urinary tract infection, site not specified ; R31.9 - Hematuria, unspecified; R31.9 - Hematuria, unspecified Condition: Stable Disposition: HOME, SELF-CARE Instructions: Cephalexin ([facility]), Hematuria ([facility]), Urinary Tract Infection ([facility]) Additional Instructions: Follow up with your primary care provider in one to 2 days. Return to the emergency room immediately if symptoms worsen or any additional concerns. Prescriptions: Cephalexin Monohydrate [Keflex 500 mg Capsule] 500 mg PO BID #20 capsule Forms: Return to Work
[2018-09-08 15:01] LABS: CHLAM PCR NOT DETECTED (NOT DETECT); GON PCR NOT DETECTED (NOT DETECT)
[2018-09-08 15:10] VITALS: BP 148/106
== END 2018-09-08 15:10 | disposition home or self-care (01) ==
LOC: ER 11:10
DX: N39.0 Urinary tract infection, site not specified (principal); R31.0 Gross hematuria; R30.0 Dysuria
CPT/HCPCS: 76870; 81001; 87491; 87591; 93976; 99284

== ENCOUNTER 2018-10-23 09:47 | Emergency (ER) | payer SELFPAY ==
[2018-10-23 10:00] VITALS: BP 150/98
[2018-10-23] MEDS ORDERED: IBUPROFEN 800 MG TABLET PO ONE (10:18)
[2018-10-23] MEDS ORDERED: LIDOCAINE 5% (700 MG) TRANSDERMAL ADH..PATCH TP ONE (10:18)
[2018-10-23] MEDS ORDERED: OXYCODONE-ACETAMINOPHEN 5-325 MG TABLET PO ONE (10:18)
--- NOTE | 2018-10-23 10:23 | ER Document Report ---
HPI - HPI Patient complains to provider of: back pain Time Seen by Provider: 10/23/18 10:08 Onset/Duration: Worse Quality of pain: Achy Pain Level: 5 Context: Patient presents complaining of chronic low back pain that worsened over the past 3 days. Patient states he sneezed and had increased pain. Patient complains of pain that radiates into the right lower extremity. Patient previously had been followed by pain management although lost his insurance and has not been able to see them since. Associated Symptoms: denies: Fever, Headache Exacerbated by: Movement, Walking Relieved by: Denies Similar symptoms previously: Yes Recently seen / treated by doctor: No - ROS ROS below otherwise negative: Yes Systems Reviewed and Negative: Yes All other systems reviewed and negative - CONSTITUTIONAL Constitutional: DENIES: Fever, Chills - NEURO Neurology: DENIES: Weakness - MUSCULOSKELETAL Musculoskeletal: REPORTS: Extremity pain, Back Pain - DERM Skin Color: Normal Skin Problems: None Past Medical History - General Information source: Patient - Social History Smoking Status: Former Smoker Drug Abuse: Marijuana Occupation: none Lives with: Family Family History: Reviewed & Not Pertinent Patient has suicidal ideation: No Patient has homicidal ideation: No Pulmonary Medical History: Reports: Hx Bronchitis, Hx Sleep Apnea Renal/ Medical History: Denies: Hx Peritoneal Dialysis Musculoskeletal Medical History: Reports Hx Arthritis, Reports Hx Musculoskeletal Deformity, Reports Hx Musculoskeletal Trauma Traumatic Medical History: Reports: Hx Fractures - 5th toe Past Surgical History: Reports: Other - Pilonidal cyst removal - Immunizations Hx Diphtheria, Pertussis, Tetanus Vaccination: Yes Vertical Provider Document - CONSTITUTIONAL Agree With Documented VS: Yes Exam Limitations: No Limitations General Appearance: WD/WN, Obese - Morbidly obese Notes: PHYSICAL EXAMINATION: GENERAL: Well-appearing, well-nourished and in no acute distress. HEAD: Atraumatic, normocephalic. EYES: sclera clear, anicteric, conjunctiva are normal. ENT: nares patent, Moist mucous membranes. NECK: Normal range of motion, supple no lymphadenopathy LUNGS: respirations unlabored HEART: Regular rate and rhythm without murmurs EXTREMITIES: Normal range of motion, no pitting or edema. No cyanosis. Gait normal, pt ambulates without difficulty BACK: Thoracolumbar midline tenderness, lumbar paraspinal tenderness, no deformities or step-offs. No CVA tenderness. NEUROLOGICAL: Cranial nerves grossly intact. Normal speech, normal gait. No saddle anesthesia. No foot drop PSYCH: Normal mood, normal affect. SKIN: Warm, Dry, normal turgor, no rashes or lesions noted. - INFECTION CONTROL TRAVEL OUTSIDE OF THE [place] IN LAST 30 DAYS: No Course - Re-evaluation Re-evalutation: 10/23/18 10:19 The patient presents with low back pain without signs of spinal cord compression, cauda equina syndrome, infection, aneurysm, or other serious etiology. The patient is neurologically intact. Given the extremely risk of these diagnoses further testing and evaluation for these possibilities does not appear to be indicated at this time. Patient has been instructed to return if the symptoms worsen or change in any way. - Vital Signs Vital signs: Temp Pulse Resp BP Pulse Ox 98.6 F 79 15 150/98 H 96 10/23/18 09:59 10/23/18 09:59 10/23/18 09:59 10/23/18 09:59 10/23/18 09:59 Discharge - Discharge Clinical Impression: Sciatica Qualifiers: Laterality: right Qualified Code(s): M54.31 - Sciatica, right side Condition: Stable Disposition: HOME, SELF-CARE Instructions: Ice Packs ([facility]), Low Back Pain ([facility]), Oral Narcotic Medication ([facility]), Sciatica ([facility]) Additional Instructions: Return immediately for any new or worsening symptoms Followup with your primary care provider, call tomorrow to make a followup appointment Follow-up with orthopedic phone triage specialist for further evaluation Prescriptions: Cyclobenzaprine HCl [Flexeril 10 Mg Tablet] 10 mg PO TID #15 tablet Naproxen [Naprosyn 250 Nmg Tablet] 1 tab PO BID #14 tablet Oxycodone HCl/Acetaminophen [Percocet 5-325 mg Tablet] 1 tab PO ASDIR PRN #15 tablet PRN Reason: Forms: Return to Work Referrals: [facility] ([place]) [Provider Group] - Follow up as needed
== END 2018-10-23 10:50 | disposition home or self-care (01) ==
LOC: ER 09:47
DX: M54.31 Sciatica, right side (principal)
CPT/HCPCS: 99283

== ENCOUNTER 2019-02-18 09:47 | Emergency (ER) | payer MEDICAID ==
[2019-02-18] MEDS ORDERED: OXYCODONE-ACETAMINOPHEN 5-325 MG TABLET PO ONE (10:30)
[2019-02-18] MEDS ORDERED: LIDOCAINE 5% (700 MG) TRANSDERMAL ADH..PATCH TP ONE (10:30)
--- NOTE | 2019-02-18 10:30 | ER Document Report ---
ED Neck/Back Problem - General Chief Complaint: Back Pain Stated Complaint: FALL/BACK PAIN Time Seen by Provider: 02/18/19 10:21 Mode of Arrival: Ambulatory Information source: Patient Notes: 29-year-old morbidly obese man presented to ED for complaint of chronic back pain that is exacerbated after he locked up yesterday causing him to fall on the floor. He denies any loss of control of bowel or bladder, saddle anesthesia, loss of control or sensation to the lower extremities. He states he does sometimes have numbness tingling and burning in his legs but this is from the chronic pain. He states he fell last week and had x-rays done and he has degenerative disc in his lumbar and sacral spine. He states he has a referral into a neurologist for follow-up with his. 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 He does not smoke drink or do any drugs. Patient is alert oriented respirations regular and unlabored and is able to ambulate freely. TRAVEL OUTSIDE OF THE [place] IN LAST 30 DAYS: No - HPI Patient complains to provider of: Pain, Lower back Onset: Other Where: Home Timing: Still present Quality of pain: Achy Severity: Severe Pain Level: 5 Context: Other Recent injury: No Associated symptoms: Like prior neck/back pain, Numbness/tingling, Radiation to leg, Lower back pain. denies: Incontinence, Motor loss, Radiation to arm, Radiation to chest, Sensory loss, Sweaty, Unable to urinate, Upper back pain Exacerbated by: Movement of trunk Relieved by: Nothing Similar symptoms previously: Yes Recently seen / treated by doctor: Yes - Related Data Allergies/Adverse Reactions: No Known Allergies Allergy (Verified 02/18/19 09:48) Past Medical History - General Information source: Patient - Social History Smoking Status: Never Smoker Cigarette use (# per day): No Chew tobacco use (# tins/day): No Smoking Education Provided: No Frequency of alcohol use: None Drug Abuse: None Lives with: Family Family History: Reviewed & Not Pertinent Patient has suicidal ideation: No Patient has homicidal ideation: No - Past Medical History Cardiac Medical History: Reports: None Pulmonary Medical History: Reports: Hx Bronchitis, Hx Sleep Apnea EENT Medical History: Reports: None Neurological Medical History: Reports: None Endocrine Medical History: Reports: None Renal/ Medical History: Reports: None Malignancy Medical History: Reports None GI Medical History: Reports: None Musculoskeletal Medical History: Reports Hx Arthritis, Reports Hx Musculoskeletal Deformity, Reports Hx Musculoskeletal Trauma Skin Medical History: Reports None Psychiatric Medical History: Reports: None Traumatic Medical History: Reports: Hx Fractures - 5th toe Infectious Medical History: Reports: None Past Surgical History: Reports: Other - Pilonidal cyst removal - Immunizations Hx Diphtheria, Pertussis, Tetanus Vaccination: Yes Review of Systems - Review of Systems Constitutional: No symptoms reported EENT: No symptoms reported Cardiovascular: No symptoms reported Respiratory: No symptoms reported Gastrointestinal: No symptoms reported Genitourinary: No symptoms reported Male Genitourinary: No symptoms reported Musculoskeletal: Back pain, Muscle pain Skin: No symptoms reported Hematologic/Lymphatic: No symptoms reported Neurological/Psychological: No symptoms reported -: Yes All other systems reviewed and negative Physical Exam - Vital signs Vitals: Temp Pulse Resp BP Pulse Ox 99.2 F 99 20 179/102 H 97 02/18/19 09:52 02/18/19 09:52 02/18/19 09:52 02/18/19 09:52 02/18/19 09:52 Interpretation: Normal - General General appearance: Appears well, Alert - HEENT Head: Normocephalic, Atraumatic Eyes: Normal Pupils: PERRL - Respiratory Respiratory status: No respiratory distress Chest status: Nontender Breath sounds: Normal Chest palpation: Normal - Cardiovascular Rhythm: Regular Heart sounds: Normal auscultation Murmur: No - Abdominal Inspection: Normal Distension: No distension Bowel sounds: Normal Tenderness: Nontender Organomegaly: No organomegaly - Back Back: Normal, Tender, Vertebra tenderness. No: Deformity/step-off, CVA tenderness, Scars, Scoliosis, Wounds - Extremities General upper extremity: Normal inspection, Nontender, Normal color, Normal ROM, Normal temperature General lower extremity: Normal inspection, Nontender, Normal color, Normal ROM, Normal temperature, Normal weight bearing. No: Josie's sign - Neurological Neuro grossly intact: Yes Cognition: Normal Orientation: AAOx4 David Coma Scale Eye Opening: Spontaneous David Coma Scale Verbal: Oriented [place] Coma Scale Motor: Obeys Commands [place] Coma Scale Total: 15 Speech: Normal Motor strength normal: LUE, RUE, LLE, RLE Sensory: Normal - Psychological Associated symptoms: Normal affect, Normal mood - Skin Skin Temperature: Warm Skin Moisture: Dry Skin Color: Normal Course - Re-evaluation Re-evalutation: 02/18/19 10:36 After performing a Medical Screening Examination, I estimate there is LOW risk for EXPANDING OR RUPTURED ABDOMINAL AORTIC ANEURYSM, CAUDA EQUINA SYNDROME, EPIDURAL MASS LESION, or HERNIATED DISK CAUSING SEVERE SPINAL STENOSIS, thus I consider the discharge disposition reasonable. I have reevaluated this patient multiple times and no significant life threatening changes are noted. The patient and I have discussed the diagnosis and risks, and we agree with discha rging home and close follow-up. We also discussed returning to the Emergency Department immediately if new or worsening symptoms occur with the understanding that symptoms and presentations can change. We have discussed the symptoms which are most concerning (e.g., saddle anesthesia, urinary or bowel incontinence or retention, changing or worsening pain) that necessitate immediate return. - Vital Signs Vital signs: Temp Pulse Resp BP Pulse Ox 98.3 F 92 16 177/107 H 96 02/18/19 10:35 02/18/19 10:35 02/18/19 10:35 02/18/19 10:35 02/18/19 10:35 Discharge - Discharge Clinical Impression: Acute exacerbation of chronic low back pain Condition: Stable Disposition: HOME, SELF-CARE Additional Instructions: Chronic Pain Control Stress, inactivity, and depression make pain more severe regardless of the cause of the pain. Stress and poor physical condition can cause pain such as headaches and backache. Relaxation: Rest in a quiet place with your eyes closed for 20 minutes t wice daily. Concentrate on a pleasant image, or simply "feel" your breathing. Clear your mind. Stress management: Deal with your "stressors." Either take action, or eliminate the stressor from your life. Don't let things hang over you. Accept those things you can't change. Nutrition: Eat small, balanced meals -- don't skip, don't overeat. Meals should be high-carbohydrate, low-sugar, low-fat. Exercise: Exercise helps painful conditions and eases stress. Get 30 minutes of moderate exercise, five days a week. Do an activity that does not flare your pain. Precautions: Pain which continues to disrupt daily activities, or which changes in nature, requires a medical evaluation. Pain Clinic referral is available. We do not manage chronic pain in the Emergency Department. We will try to appropriately help you through an acute flare of your chronic painful condition, but for on-going chronic pain that does not improve, you will need to see your private doctor or ceramic painter. We do not provide repeated medication management of chronic painful conditions. If you wish, we can provide the name of local pain management physicians. LOW BACK PAIN: Three out of every four people will have an episode of disabling back pain during their lifetime. Most commonly the pain is due to straining of the muscles and ligaments in the low back. Usual treatment includes: (1) Rest on a firm surface. Avoid lying on your stomach. (2) Ice pack the painful area. After a few days, gentle heat may be used intermittently to relax the area, or ice packs can be continued. (3) Medication may be needed -- muscle relaxers and antiinflammatory medicines are commonly used. (4) As the back improves, exercises are prescribed to strengthen the back and abdominal muscles. Your doctor will advise you on the proper care for your back at each stage in your recovery. You may be better in a few days -- or healing may take several weeks. If new symptoms of a "herniated disc" (radiation of pain, numbness, or tingling down the back of the leg or weakness in the leg) occur, you should be re-examined. Further testing may be necessary. Stretching Exercises for the Back The physician has recommended that you begin stretching exercises for your back. These are often used even while the back is painful. However, you should notify the physician if the activities seem to increase your pain. PELVIC TILT: Lie flat on your back with knees bent. Tighten your stomach and buttock muscles so it flattens your lower back against the floor. Hold 10 seconds. Repeat 10 times, twice daily. KNEE RAISE: Lying on the back with knees bent, raise one knee to your chest, then the other. Hold both knees against the chest 10 seconds, then lower one knee at a time. Repeat 10 times, twice daily. PARTIAL TRUNK RAISE: Lie face down, arms at your sides. Keeping your waist on the floor, use your arms raise your chest up. Support yourself on your elbows for 30 seconds. Repeat twice daily, increasing the time to two minutes as you recover. ICE PACKS: Apply ice packs frequently against the painful area. Many different schedules are recommended, such as "20 minutes on, 20 minutes off" or "one hour ice, two hours rest." If you need to work, you may need to go longer between ice treatments. You should plan to have the area ice packed AT LEAST one fourth of the time. The ice should be applied over the wrap, tape, or splint, or over a layer of cloth -- not directly against the skin. Some ice bags have a built-in cloth and can be put directly on the skin. WARM PACKS: After approximately two days, apply gentle heat (such as a heating pad or hot water bottle) for about 20 to 30 minutes about every two hours -- at least four times daily. Warmth and elevation will help you make a more rapid recovery, and will ease the pain considerably. Do not use HOT heat, and never apply heat for longer than 30 minutes. The continuous heat can invisibly damage skin and muscles -- even when no burn is seen on the surface. Damaged muscles can make you MORE sore. FOLLOW-UP CARE: If you have been referred to a physician for follow-up care, call the physicians office for an appointment as you were instructed or within the next two days. If you experience worsening or a significant change in your symptoms, notify the physician immediately or return to the Emergency Department at any time for re-evaluation. Forms: Elevated Blood Pressure, Return to Work
[2019-02-18 10:36] VITALS: BP 177/107
== END 2019-02-18 11:04 | disposition home or self-care (01) ==
LOC: ER 09:47
DX: M54.5 Low back pain (principal); G89.29 Other chronic pain
CPT/HCPCS: 99283; J3490

== ENCOUNTER 2019-04-08 14:32 | Emergency (ER) | payer MEDICAID ==
[2019-04-08] MEDS ORDERED: DIPHENHYDRAMINE HCL 50 MG CAPSULE PO ONE (15:12)
[2019-04-08] MEDS ORDERED: FAMOTIDINE 20 MG TABLET PO ONE (15:12)
[2019-04-08] MEDS ORDERED: PREDNISONE 20 MG TABLET PO ONE (15:12)
--- NOTE | 2019-04-08 15:16 | ER Document Report ---
HPI - HPI Patient complains to provider of: Insect bite Time Seen by Provider: 04/08/19 15:06 Onset: This afternoon Onset/Duration: Gradual Quality of pain: Achy Pain Level: 2 Context: Patient states that he got an insect bite to the upper arm today. Patient complains of itching. Patient reports wheezing for the past week. Patient is a former smoker. No fever. No chest pain. Associated Symptoms: Nonproductive cough, Other - Insect bite to right arm. denies: Fever, Sore throat Exacerbated by: Denies Relieved by: Denies Similar symptoms previously: No Recently seen / treated by doctor: No - ROS ROS below otherwise negative: Yes Systems Reviewed and Negative: Yes All other systems reviewed and negative - CONSTITUTIONAL Constitutional: DENIES: Fever - EENT EENT: DENIES: Sore Throat - NEURO Neurology: DENIES: Headache - CARDIOVASCULAR Cardiovascular: DENIES: Chest pain - RESPIRATORY Respiratory: REPORTS: Coughing. DENIES: Trouble Breathing - MUSCULOSKELETAL Musculoskeletal: REPORTS: Extremity pain - DERM Skin Color: Erythema Past Medical History - General Information source: Patient - Social History Smoking Status: Former Smoker Frequency of alcohol use: None Drug Abuse: None Occupation: [employer] Lives with: Family Family History: Reviewed & Not Pertinent Pulmonary Medical History: Reports: Hx Bronchitis, Hx Sleep Apnea Renal/ Medical History: Denies: Hx Peritoneal Dialysis Musculoskeletal Medical History: Reports Hx Arthritis, Reports Hx Musculoskeletal Deformity, Reports Hx Musculoskeletal Trauma Traumatic Medical History: Reports: Hx Fractures - 5th toe Past Surgical History: Reports: Other - Pilonidal cyst removal - Immunizations Hx Diphtheria, Pertussis, Tetanus Vaccination: Yes Vertical Provider Document - CONSTITUTIONAL Agree With Documented VS: Yes Exam Limitations: No Limitations General Appearance: WD/WN, No Apparent Distress - INFECTION CONTROL TRAVEL OUTSIDE OF THE [place] IN LAST 30 DAYS: No - HEENT HEENT: Atraumatic, Normal ENT Exam, Normocephalic Notes: no angioedema, no potential airway compromise - NECK Neck: Normal Inspection, Supple. negative: Lymphadenopathy-Left, Lymphadenopathy-Right - RESPIRATORY Respiratory: No Respiratory Distress, Chest Non-Tender, Wheezing - CARDIOVASCULAR Cardiovascular: Regular Rate, Regular Rhythm, No Murmur - MUSCULOSKELETAL/EXTREMETIES Musculoskeletal/Extremeties: MAEW, FROM - NEURO Level of Consciousness: Awake, Alert, Appropriate Motor/Sensory: No Motor Deficit - DERM Integumentary: Warm, Dry Notes: Patient with papular lesions to the volar aspect of right upper arm with surrounding erythema Course - Re-evaluation Re-evalutation: 04/08/19 15:13 Patient with what appears to be insect bites to the right upper arm with surrounding erythema, no fluctuance, no concern for abscess. - Vital Signs Vital signs: Temp Pulse Resp BP Pulse Ox 98.5 F 104 H 18 155/109 H 94 04/08/19 14:42 04/08/19 14:42 04/08/19 14:42 04/08/19 14:42 04/08/19 14:42 Discharge - Discharge Clinical Impression: Wheezing Insect bite Qualifiers: Encounter type: initial encounter Site of insect bite: upper arm Laterality: right Qualified Code(s): S40.861A - Insect bite (nonvenomous) of right upper arm, initial encounter Condition: Stable Disposition: HOME, SELF-CARE Instructions: Bronchitis With Bronchospasm (Wheezing) ([facility]), Inhaled Bronchodilators ([facility]), Insect Bites ([facility]), Steroid Medication Additional Instructions: Return immediately for any new or worsening symptoms Followup with your primary care provider, call tomorrow to make a followup appointment Take Benadryl [id number] to help with symptoms Prescriptions: Albuterol Sulfate [Proair Hfa Inhalation Aerosol 8.5 gm Mdi] 2 puff IH Q4 PRN #1 mdi PRN Reason: Famotidine [Pepcid 20 mg Tablet] 20 mg PO BID #12 tablet Inhaler,Assist Device,Accesory [Optichamber] 1 each MC Q4 PRN #1 each PRN Reason: Prednisone [Deltasone 10 mg Tablet] 10 mg PO ASDIR PRN #21 tablet PRN Reason: Forms: Return to Work Referrals: KOURTNEY GRIFFITHS 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
[2019-04-08 15:40] VITALS: BP 152/99
== END 2019-04-08 15:50 | disposition home or self-care (01) ==
LOC: ER 14:32
DX: R06.2 Wheezing (principal); S40.861A Insect bite (nonvenomous) of right upper arm, initial encounter; R05 Cough; W57.XXXA Bitten or stung by nonvenomous insect and other nonvenomous arthropods, initial encounter; Z87.891 Personal history of nicotine dependence
CPT/HCPCS: 99281; J3490 ×2; J7512

== ENCOUNTER 2019-06-20 18:45 | Emergency (ER) | payer MEDICAID ==
[2019-06-20] MEDS ORDERED: KETOROLAC TROMETHAMINE 60 MG/2 ML SDV IM ONE (21:18)
[2019-06-20] MEDS ORDERED: LIDOCAINE 5% (700 MG) TRANSDERMAL ADH..PATCH TP ONE (21:19)
[2019-06-20] MEDS ORDERED: DEXAMETHASONE SOD PHOS INJ 10 MG/1 ML VIAL IM ONE (21:19)
--- NOTE | 2019-06-20 21:40 | ER Document Report ---
ED Neck/Back Problem - General Chief Complaint: Back Pain Stated Complaint: BACK PAIN Time Seen by Provider: 06/20/19 21:09 Primary Care Provider: KOURTNEY GRIFFITHS PA-C [Primary Care Provider] - Follow up as needed Mode of Arrival: Ambulatory Information source: Patient Notes: 29-year-old male presented to ED for complaint of lower back pain x2 days. He states it is slipped in the shower and caught himself he did not fall but he does have an increase in pain in his lower back radiates down his leg. He states this is the same pain he always gets when he does anything to his back. Patient states he takes Flexeril and meloxicam for his back but he did not take anything today. Patient is alert and oriented respirations regular and unlabored speaking in full sentences. He states he did not want another back x- ray he has had an upper back x-rays. He states he has a follow-up appointment with a back specialist in a couple weeks. TRAVEL OUTSIDE OF THE [place] IN LAST 30 DAYS: No - HPI Patient complains to provider of: Pain, Lower back Onset: Other - Couple days Where: Other - Exacerbation of a chronic problem when he slipped in the shower Onset: Chronic Timing: Still present Quality of pain: Achy, Sharp Severity: Moderate Pain Level: 4 Context: Other - Slipped but did not fall Recent injury: Possibly Associated symptoms: Lower back pain Exacerbated by: Movement of trunk, Sitting position Relieved by: Nothing Similar symptoms previously: Yes Recently seen / treated by doctor: Yes - Related Data Allergies/Adverse Reactions: No Known Allergies Allergy (Verified 06/20/19 18:47) Past Medical History - General Information source: Patient - Social History Smoking Status: Former Smoker Frequency of alcohol use: None Drug Abuse: Marijuana - 4 joints a day 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 Lives with: Family Family History: Reviewed & Not Pertinent Patient has suicidal ideation: No Patient has homicidal ideation: No - Past Medical History Cardiac Medical History: Reports: None Pulmonary Medical History: Reports: Hx Bronchitis, Hx Sleep Apnea EENT Medical History: Reports: None Neurological Medical History: Reports: None Endocrine Medical History: Reports: None Renal/ Medical History: Reports: None Malignancy Medical History: Reports None GI Medical History: Reports: None Musculoskeletal Medical History: Reports Hx Arthritis, Reports Hx Musculoskeletal Deformity, Reports Hx Musculoskeletal Trauma Skin Medical History: Reports None Psychiatric Medical History: Reports: None Traumatic Medical History: Reports: Hx Fractures - 5th toe Infectious Medical History: Reports: None Past Surgical History: Reports: Other - Pilonidal cyst removal - Immunizations Hx Diphtheria, Pertussis, Tetanus Vaccination: Yes Review of Systems - Review of Systems Constitutional: No symptoms reported EENT: No symptoms reported Cardiovascular: No symptoms reported Respiratory: No symptoms reported Gastrointestinal: No symptoms reported Genitourinary: No symptoms reported Male Genitourinary: No symptoms reported Musculoskeletal: Back pain, Muscle pain Skin: No symptoms reported Hematologic/Lymphatic: No symptoms reported Neurological/Psychological: No symptoms reported Physical Exam - Vital signs Vitals: Temp Pulse Resp BP Pulse Ox 98.2 F 87 16 148/114 H 96 06/20/19 19:06 06/20/19 19:06 06/20/19 19:06 06/20/19 19:06 06/20/19 19:06 Interpretation: Normal - General General appearance: Appears well, Alert - HEENT Head: Normocephalic, Atraumatic Eyes: Normal Pupils: PERRL - Respiratory Respiratory status: No respiratory distress Chest status: Nontender Breath sounds: Normal Chest palpation: Normal - Cardiovascular Rhythm: Regular Heart sounds: Normal auscultation Murmur: No - Abdominal Inspection: Normal Distension: No distension Bowel sounds: Normal Tenderness: Nontender Organomegaly: No organomegaly - Back Back: Normal, Tender. No: Deformity/step-off, CVA tenderness, Vertebra tenderness, Scars, Scoliosis - Extremities General upper extremity: Normal inspection, Nontender, Normal color, Normal ROM, Normal temperature General lower extremity: Normal inspection, Nontender, Normal color, Normal ROM, Normal temperature, Normal weight bearing. No: Josie's sign - Neurological Neuro grossly intact: Yes Cognition: Normal Orientation: AAOx4 David Coma Scale Eye Opening: Spontaneous [place] Coma Scale Verbal: Oriented David Coma Scale Motor: Obeys Commands [place] Coma Scale Total: 15 Speech: Normal Motor strength normal: LUE, RUE, LLE, RLE Sensory: Normal - Psychological Associated symptoms: Normal affect, Normal mood - Skin Skin Temperature: Warm Skin Moisture: Dry Skin Color: Normal Course - Re-evaluation Re-evalutation: 06/21/19 02:18 After performing a Medical Screening Examination, I estimate there is LOW risk for EXPANDING OR RUPTURED ABDOMINAL AORTIC ANEURYSM, CAUDA EQUINA SYNDROME, EPIDURAL MASS LESION, or HERNIATED DISK CAUSING SEVERE SPINAL STENOSIS, thus I consider the discharge disposition reasonable. I have reevaluated this patient multiple times and no significant life threatening changes are noted. The patient and I have discussed the diagnosis and risks, and we agree with discharging home and close follow-up. We also discussed returning to the Emergency Department immediately if new or worsening symptoms occur with the understanding that symptoms and presentations can change. We have discussed the symptoms which are most concerning (e.g., saddle anesthesia, urinary or bowel incontinence or retention, changing or worsening pain) that necessitate immediate return. - Vital Signs Vital signs: Temp Pulse Resp BP Pulse Ox 98.2 F 87 16 148/114 H 96 06/20/19 19:06 06/20/19 19:06 06/20/19 19:06 06/20/19 19:06 06/20/19 19:06 Discharge - Discharge Clinical Impression: Acute exacerbation of chronic low back pain Condition: Stable Disposition: HOME, SELF-CARE Additional Instructions: Chronic Back Pain Chronic back pain (pain persisting longer than three months) is a common problem. A medical evaluation can look for herniated disc, arthritis, osteoporosis, tumors, and infections. But at least half the time, there's no obvious treatable cause. Anxiety and depression tend to worsen back pain. Ibuprofen or other anti-inflammatory medicine can help. A heating pad, used for 15-20 minutes at a time, can ease pain. For this type of back pain, narcotic medicines should be avoided. Muscle relaxers are rarely helpful unless you're having spasms. Activity is important. Find an aerobic exercise program that your back can tolerate. Too much rest makes back pain worse. Specific back exercises are usually prescribed to strengthen the back and abdominal muscles. Often, a physical therapist can help. Avoid heavy lifting, working while bent over, or standing with both knees straight. Most back pain patients do better with a firm mattress. If new symptoms of a "herniated disc" (radiation of pain, numbness, or tingling down the back of the leg or weakness in the leg) occur, you should be re-examined.Chronic Pain Control Stress, inactivity, and depression make pain more severe regardless of the cause of the pain. Stress and poor physical condition can cause pain such as headaches and backache. Relaxation: Rest in a quiet place with your eyes closed for 20 minutes twice daily. Concentrate on a pleasant image, or simply "feel" your breathing. Clear your mind. Stress management: Deal with your "stressors." Either take action, or eliminate the stressor from your life. Don't let things hang over you. Accept those things you can't change. Nutrition: Eat small, balanced meals -- don't skip, don't overeat. Meals should be high-carbohydrate, low-sugar, low-fat. Exercise: Exercise helps painful conditions and eases stress. Get 30 minutes of moderate exercise, five days a week. Do an activity that does not flare your pain. Precautions: Pain which continues to disrupt daily activities, or which changes in nature, requires a medical evaluation. Pain Clinic referral is available. We do not manage chronic pain in the Emergency Department. We will try to appropriately help you through an acute flare of your chronic painful condition, but for on-going chronic pain that does not improve, you will need to see your private doctor or furniture painter. We do not provide repeated medic ation management of chronic painful conditions. If you wish, we can provide the name of local pain management physicians. LOW BACK PAIN: Three out of every four people will have an episode of disabling back pain during their lifetime. Most commonly the pain is due to straining of the muscles and ligaments in the low back. Usual treatment includes: (1) Rest on a firm surface. Avoid lying on your stomach. (2) Ice pack the painful area. After a few days, gentle heat may be used intermittently to relax the area, or ice packs can be continued. (3) Medication may be needed -- muscle relaxers and antiinflammatory medicines are commonly used. (4) As the back improves, exercises are prescribed to strengthen the back and abdominal muscles. Your doctor will advise you on the proper care for your back at each stage in your recovery. You may be better in a few days -- or healing may take several weeks. If new symptoms of a "herniated disc" (radiation of pain, numbness, or tingling down the back of the leg or weakness in the leg) occur, you should be re-examined. Further testing may be necessary. ICE PACKS: Apply ice packs frequently against the painful area. Many different schedules are recommended, such as "20 minutes on, 20 minutes off" or "one hour ice, two hours rest." If you need to work, you may need to go longer between ice treatments. You should plan to have the area ice packed AT LEAST one fourth of the time. The ice should be applied over the wrap, tape, or splint, or over a layer of cloth -- not directly against the skin. Some ice bags have a built-in cloth and can be put directly on the skin. WARM PACKS: After approximately two days, apply gentle heat (such as a heating pad or hot water bottle) for about 20 to 30 minutes about every two hours -- at least four times daily. Warmth and elevation will help you make a more rapid recovery, and will ease the pain considerably. Do not use HOT heat, and never apply heat for longer than 30 minutes. The continuous heat can invisibly damage skin and muscles -- even when no burn is seen on the surface. Damaged muscles can make you MORE sore. Toradol Injection You have been given an injection of ketorolac tromethamine (Toradol). This is an excellent, safe drug for pain control. It also has potent antiinflammatory action. You should have significant pain relief within about one hour. Toradol is not addicting and is non-sedating. It does not interfere with driving or work. Call or return if you develop itching, hives, shortness of breath, or rash. STEROID MEDICATION: You have been given an injection of medicine of the cortisone/steroid class. This medication is used to control inflammation or allergy. It is often continued as a pill for a short period of time, until the acute process subsides. There are usually no side effects from short-term use of cortisone-like medications. Some persons feel an increased sense of well-being and are not sleepy at bedtime. Long-term use of cortisone medications is best avoided, unless required for a severe condition. If your condition does not remit, or relapses after the course of corticosteroid medication, you should consult your physician. Stretching Exercises for the Back The physician has recommended that you begin stretching exercises for your back. These are often used even while the back is painful. However, you should notify the physician if the activities seem to increase your pain. PELVIC TILT: Lie flat on your back with knees bent. Tighten your stomach and buttock muscles so it flattens your lower back against the floor. Hold 10 seconds. Repeat 10 times, twice daily. KNEE RAISE: Lying on the back with knees bent, raise one knee to your chest, then the other. Hold both knees against the chest 10 seconds, then lower one knee at a time. Repeat 10 times, twice daily. PARTIAL TRUNK RAISE: Lie face down, arms at your sides. Keeping your waist on the floor, use your arms raise your chest up. Support yourself on your elbows for 30 seconds. Repeat twice daily, increasing the time to two minutes as you recover. FOLLOW-UP CARE: If you have been referred to a physician for follow-up care, call the physicians office for an appointment as you were instructed or within the next two days. If you experience worsening or a significant change in your symptoms, notify the physician immediately or return to the Emergency Department at any ti me for re-evaluation. Forms: Elevated Blood Pressure, Smoking Cessation Education Referrals: KOURTNEY GRIFFITHS PA-C [Primary Care Provider] - Follow up in 3-5 days
[2019-06-20 21:47] VITALS: BP 150/108
== END 2019-06-20 21:48 | disposition home or self-care (01) ==
LOC: ER 18:45
DX: M54.5 Low back pain (principal); W18.40XA Slipping, tripping and stumbling without falling, unspecified, initial encounter; Y92.89 Other specified places as the place of occurrence of the external cause; M79.10 Myalgia, unspecified site; F12.10 Cannabis abuse, uncomplicated; G89.29 Other chronic pain; Z79.1 Long term (current) use of non-steroidal anti-inflammatories (NSAID); Z79.899 Other long term (current) drug therapy; Z87.891 Personal history of nicotine dependence
CPT/HCPCS: 99283; 96374; 96375; J1885; J3490; J1100

== ENCOUNTER 2019-07-07 21:38 | Emergency (ER) | payer MEDICAID ==
[2019-07-07] MEDS ORDERED: KETOROLAC TROMETHAMINE 60 MG/2 ML SDV IM ONE (22:53)
--- NOTE | 2019-07-07 22:57 | ER Document Report ---
ED General - General Chief Complaint: Headache >24 hrs old Stated Complaint: BLOOD PRESSURE ISSUE,COUGH,HEADACHE Time Seen by Provider: 07/07/19 22:36 Primary Care Provider: KOURTNEY GRIFFITHS PA-C [Primary Care Provider] - Follow up as needed Notes: 29-year-old male presents emergency department with a plethora of complaints. Patient's most acute complaint is that he has had a headache for the past 2 days, wheezing and a cough for the past 3 days and bilateral ear pain for the past 4 days. Denies any chest pain, denies any fevers. Patient also states that at work several days ago he was having swelling in his hands and his feet and he was seeing spots after walking up some steps. No chest pain or shortness of breath at that time. Patient is concerned that he has high blood pressure and is not being treated. Patient states that whenever he comes to the emergency department due to his back pain his blood pressure is always elevated. States that he is talked to his primary medical care provider at [facility] . NADIA Mckeon and has been told that he does not have high blood pressure but patient came to the emergency department to get a second opinion on this. While he was here he would also like to get a second opinion on whether or not he has diabetes and would like to discuss the fact that he is having trouble getting an appointment with a neurosurgeon since 2018 for his chronic back pain for which she has been referred to pain management. Patient is requesting a Toradol shot for his chronic back pain. States that he also usually gets a shot of steroids for his chronic back pain when it worsens. Denies any new numbness, tingling, weakness, denies any bowel or bladder dysfunction. States it is his same flare of his chronic back pain that he always gets. States that sometimes he gets a steroid shot as often as once a week. TRAVEL OUTSIDE OF THE [place] IN LAST 30 DAYS: No - Related Data Allergies/Adverse Reactions: No Known Allergies Allergy (Verified 06/20/19 18:47) Past Medical History - General Information source: Patient - Social History Smoking Status: Current Every Day Smoker Frequency of alcohol use: Occasional Drug Abuse: Marijuana Family History: Reviewed & Not Pertinent, Hypertension Patient has suicidal ideation: No Patient has homicidal ideation: No Pulmonary Medical History: Reports: Hx Bronchitis, Hx Sleep Apnea Renal/ Medical History: Denies: Hx Peritoneal Dialysis Musculoskeletal Medical History: Reports Hx Arthritis, Reports Hx Musculoskeletal Deformity, Reports Hx Musculoskeletal Trauma Traumatic Medical History: Reports: Hx Fractures - 5th toe Past Surgical History: Reports: Other - Pilonidal cyst removal - Immunizations Hx Diphtheria, Pertussis, Tetanus Vaccination: Yes Review of Systems - Review of Systems Constitutional: No symptoms reported EENT: See HPI Cardiovascular: See HPI Respiratory: See HPI Gastrointestinal: No symptoms reported Musculoskeletal: See HPI, Back pain Neurological/Psychological: No symptoms reported -: Yes All other systems reviewed and negative Physical Exam - Vital signs Vitals: Temp Pulse Resp BP Pulse Ox 98.7 F 84 18 168/117 H 96 07/07/19 21:48 07/07/19 21:48 07/07/19 21:48 07/07/19 21:48 07/07/19 21:48 Interpretation: Hypertensive - Notes Notes: GENERAL: Alert, interacts well. No acute distress. HEAD: Normocephalic, atraumatic EYES: Pupils equal, round and reactive to light, extraocular movements intact. ENT: Oral mucosa moist, tongue midline. Clear rhinorrhea, turbinate edema, injected tympanic membranes, bulging with clear fluid. NECK: Full range of motion, supple, trachea midline. LUNGS: Clear to auscultation bilaterally, no wheezes, rales or rhonchi, no respiratory distress. HEART: Regular rate and rhythm, no murmurs, gallops, rubs. ABDOMEN: Soft, nontender, nondistended, bowel sounds present in all 4 quadrants. EXTREMITIES: Moves all 4 extremities spontaneously, no edema, radial and dorsalis pedis pulses 2/4 bilaterally. No cyanosis. NEUROLOGICAL: Alert and oriented x3, normal speech. PSYCH: Normal mood, normal affect. SKIN: Warm, Dry, normal turgor, no rashes or lesions noted. Course - Re-evaluation Re-evalutation: 07/08/19 01:02 Chest x-ray shows no acute process, Accu-Chek is 99, patient does not have diabetes with an Accu-Chek of 99 but is nonfasting. Patient appears to have seasonal allergies versus viral upper respiratory infection. Patient will be prescribed Claritin and Nasonex. Encouraged to use nasal saline rinses. Discharged home. Patient's headache and back pain were treated with Toradol, states that the headache is better and the back pain is back down to its chronic level. Patient is instructed to continue to follow-up with his pain management doctor and primary care physician as outpatient, continue to pursue his appointment with [facility] neurosurgery for his back. Also discussed with patient that side effects of frequent steroids are weight gain, elevated glucose, swelling of the hand and feet and high blood pressure. Stated that he should not be having steroids once a week for this back pain. Recommended that he take his own blood pressure at home when he is not in pain and keep a diary of these blood pressures and share them with his primary care provider. If he is concerned and would like a second opinion on his blood pressure he should see a credit director such as Dr. Hernandez or Dr. Carranza. Discussed that I will not be treating his elevated blood pressure in the emergency department today as you are not supposed to react to a blood pressure that is elevated while the patient is anxious or uncomfortable. Patient understands this and agrees with being discharged home. - Vital Signs Vital signs: Temp Pulse Resp BP Pulse Ox 98.7 F 84 18 168/117 H 96 07/07/19 21:48 07/07/19 21:48 07/07/19 21:48 07/07/19 21:48 07/07/19 21:48 Discharge - Discharge Clinical Impression: Viral upper respiratory tract infection with cough, Acute exacerbation of hands parter bhavya low back pain, Concern about cardiovascular disease without diagnosis Headache Qualifiers: Headache type: unspecified Headache chronicity pattern: acute headache Intractability: not intractable Qualified Code(s): R51 - Headache Condition: Stable Disposition: HOME, SELF-CARE Additional Instructions: Upper Respiratory Illness You have a viral infection of the respiratory passages -- a "cold." This common infection causes nasal congestion, drainage, and often sore throat and cough. It is caused by a virus and is highly contagious. The disease usually lasts a week or more, though the worst symptoms are usually over in 3 or 4 days. There is no "cure" for the viral infection -- it must run its course. If there is a complication, such as bacterial infection in the nose, sinuses, middle ear, or bronchial tubes, antibiotics may be required, but antibiotics won't affect the virus. If you smoke, you should STOP!! Drink plenty of fluids. A humidifier may help. An expectorant medication or decongestant may make you more comfortable. Use acetaminophen or ibuprofen for fever or aches. See the doctor if fever persists over two or three days, if there is any significant worsening of your symptoms, or if you simply fail to improve as expected. Please use nasal saline rinses such as a NetiPot or NeilMed Sinus Rinses. Use Nasonex 1 squirt per nostril twice a day. Take Claritin 10 mg once a day [id number]. Please keep a blood pressure diary and share this with your primary care provider. Today your blood sugar was 99. There is no sign of diabetes. Prescriptions: Loratadine [Claritin 10 mg Tablet] 10 mg PO DAILY #30 tablet Mometasone Furoate [Nasonex] 1 spray NS Q12 #1 spray.pump Referrals: KOURTNEY GRIFFITHS PA-C [Primary Care Provider] - Follow up as needed ARACELIS HERNANDEZ MD [ACTIVE STAFF] - Follow up as needed RACHID CARRANZA MD [ACTIVE STAFF] - Follow up as needed
--- NOTE | 2019-07-07 23:27 | RADIOLOGY REPORT (SQ) ---
EXAM DESCRIPTION: XR CHEST 2 VIEWS COMPLETED DATE/TME: 07/07/2019 22:53 CLINICAL HISTORY: 29 years, Male, cough, SOB COMPARISON: None. NUMBER OF VIEWS: 2 TECHNIQUE: Frontal and lateral views of the chest LIMITATIONS: None. FINDINGS: The heart size is normal. Lungs are clear. No pneumothorax IMPRESSION: Negative chest copyright 2010 [employer]- All Rights Reserved
[2019-07-08 01:48] VITALS: BP 178/113
== END 2019-07-08 01:52 | disposition home or self-care (01) ==
LOC: ER 21:38
DX: R51 Headache (principal); J06.9 Acute upper respiratory infection, unspecified; B97.89 Other viral agents as the cause of diseases classified elsewhere; R05 Cough; M54.5 Low back pain; G89.29 Other chronic pain; R06.2 Wheezing; H92.03 Otalgia, bilateral; F17.200 Nicotine dependence, unspecified, uncomplicated; F12.10 Cannabis abuse, uncomplicated
CPT/HCPCS: 82962; 71046; J1885

== ENCOUNTER 2019-08-09 17:26 | Emergency (ER) | payer MEDICAID ==
--- NOTE | 2019-08-09 18:06 | ER Document Report ---
ED Medical Screen (RME) - General Chief Complaint: Headache Stated Complaint: HEADACHE Time Seen by Provider: 08/09/19 18:03 Primary Care Provider: KOURTNEY GRIFFITHS PA-C [Primary Care Provider] - Follow up as needed Mode of Arrival: Ambulatory Information source: Patient Notes: 29-year-old male presents to ED for cough congestion states he was recently treated with a sinus infection with antibiotics amoxicillin. He states he now has a ear infection. Both ears are clear for any signs of infection. He states he also has a bad headache sensitivity to light. Have a elevated blood pressure of 186/120 I have greeted and performed a rapid initial assessment of this patient. A comprehensive ED assessment and evaluation of the patient, analysis of test results and completion of medical decision making process will be conducted by an additional ED providers. TRAVEL OUTSIDE OF THE [place] IN LAST 30 DAYS: No - Related Data Allergies/Adverse Reactions: No Known Allergies Allergy (Verified 08/09/19 18:00) Home Medications: flexeril. motrin Past Medical History - Social History Chew tobacco use (# tins/day): No Frequency of alcohol use: None Drug Abuse: None Pulmonary Medical History: Reports: Hx Bronchitis, Hx Sleep Apnea Renal/ Medical History: Denies: Hx Peritoneal Dialysis Musculoskeltal Medical History: Reports Hx Arthritis, Reports Hx Musculoskeletal Deformity, Reports Hx Musculoskeletal Trauma Traumatic Medical History: Reports: Hx Fractures - 5th toe Past Surgical History: Reports: Other - Pilonidal cyst removal - Immunizations Hx Diphtheria, Pertussis, Tetanus Vaccination: Yes Physical Exam - Vital signs Vitals: Temp Pulse Resp BP Pulse Ox 97.7 F 70 22 H 186/120 H 99 08/09/19 17:43 08/09/19 17:43 08/09/19 17:43 08/09/19 17:43 08/09/19 17:43 Course - Vital Signs Vital signs: Temp Pulse Resp BP Pulse Ox 97.7 F 70 22 H 186/120 H 99 08/09/19 17:43 08/09/19 17:43 08/09/19 17:43 08/09/19 17:43 08/09/19 17:43 Doctor's Discharge - Discharge Referrals: KOURTNEY GRIFFITHS PA-C [Primary Care Provider] - Follow up as needed
[2019-08-09 18:59] LABS: ABSOLUTE BASOPHILS # (AUTO) 0.1 10^3/uL (0.0-0.2); ABSOLUTE EOSINOPHILS # (AUTO) 0.5 10^3/uL (0.0-0.6); ABSOLUTE LYMPHOCYTES (AUTO) 2.5 10^3/uL (0.5-4.7); ABSOLUTE MONOCYTES (AUTO) 0.8 10^3/uL (0.1-1.4); ABSOLUTE NEUT (AUTO) 7.7 10^3/uL (1.7-8.2); BASOPHILS % (AUTO) 0.8 % (0-2); EOSINOPHILS % (AUTO) 4.3 % (0-6); HEMATOCRIT 45.2 % (37.9-51.0); HEMOGLOBIN 15.4 g/dL (13.5-17.0); LYMPHOCYTES % (AUTO) 21.5 % (13-45); MEAN CORPUSCULAR HEMOGLOBIN 30.6 pg (27.0-33.4); MEAN CORPUSCULAR HGB CONC 34.1 g/dL (32.0-36.0); MEAN CORPUSCULAR VOLUME 90 fl (80-97); MONOCYTES % (AUTO) 6.6 % (3-13); PLATELET COUNT 291 10^3/uL (150-450); RED BLOOD COUNT 5.03 10^6/uL (4.35-5.55); SEGMENTED NEUTROPHILS % (AUTO) 66.8 % (42-78); TOTAL CELLS COUNTED % (AUTO) 100 %; WHITE BLOOD COUNT 11.6 10^3/uL (4.0-10.5)
[2019-08-09 19:05] LABS: APPEARANCE,URINE SLIGHTLY-CLOUDY; BILIRUBIN,URINE NEGATIVE (NEGATIVE); COLOR,URINE YELLOW; GLUCOSE, URINE NEGATIVE (NEGATIVE); KETONES,URINE NEGATIVE (NEGATIVE); PROTEIN,URINE NEGATIVE (NEGATIVE); URINE SPECIFIC GRAVITY 1.024; UROBILINOGEN,URINE NEGATIVE mg/dL (<2.0)
[2019-08-09 19:22] LABS: ALBUMIN 4.4 g/dL (3.5-5.0); ALKALINE PHOSPHATASE 61 U/L (38-126); ANION GAP 11 (5-19); ASPARTATE AMINO TRANSFERASE 27 U/L (17-59); BILIRUBIN,DIRECT 0.1 mg/dL (0.0-0.4); BILIRUBIN,TOTAL 0.2 mg/dL (0.2-1.3); BLOOD UREA NITROGEN 15 mg/dL (7-20); CALCIUM 9.4 mg/dL (8.4-10.2); CARBON DIOXIDE 29 mmol/L (22-30); CHLORIDE 101 mmol/L (98-107); GLUCOSE 90 mg/dL (75-110); POTASSIUM 4.4 mmol/L (3.6-5.0); TOTAL PROTEIN 7.5 g/dL (6.3-8.2)
[2019-08-09] MEDS ORDERED: METOCLOPRAMIDE HCL INJ/PF 10 MG/2 ML SDV IV ONE (20:47)
[2019-08-09] MEDS ORDERED: NORMAL SALINE 1000 ML 1,000 ML IV ONE (20:47)
[2019-08-09] MEDS ORDERED: DIPHENHYDRAMINE HCL 50 MG/ML VIAL IV ONE (20:47)
[2019-08-09] MEDS ORDERED: KETOROLAC TROMETHAMINE INJ/PF 30 MG/1 ML SDV IV ONE (20:47)
--- NOTE | 2019-08-09 20:52 | ER Document Report ---
ED General - General Chief Complaint: Headache Stated Complaint: HEADACHE Time Seen by Provider: 08/09/19 18:03 Primary Care Provider: KOURTNEY GRIFFITHS PA-C [Primary Care Provider] - Follow up as needed Mode of Arrival: Ambulatory TRAVEL OUTSIDE OF THE [place] IN LAST 30 DAYS: No - HPI Notes: Patient is a 29-year-old male who presents emergency department for evaluation of a headache. He states is been present for a couple of weeks. It waxes and wanes in intensity, but is never gone away. He denies any associated visual changes. No difficulty speaking or swallowing. Moving his arms and legs without difficulty. He has had some nausea with one episode of emesis yesterday. He states the pain is on the right side of his head, going from the occipital region up into the temporal region and around his ear. He thought perhaps he had an ear infection. No associated fevers or chills, no sore throat. He denies any rashes. We did discuss his blood pressure. The patient states that it is always high. He is being seen at [facility]. He states they started him on a medication, told him to keep a log of his blood pressures, and follow-up. He stopped taking the medication "because it was not doing anything." He has not yet followed up. - Related Data Allergies/Adverse Reactions: No Known Allergies Allergy (Verified 08/09/19 18:00) Home Medications: flexeril. motrin Past Medical History - General Information source: Patient - Social History Smoking Status: Never Smoker Chew tobacco use (# tins/day): No Frequency of alcohol use: None Drug Abuse: None Family History: Reviewed & Not Pertinent, Hypertension Patient has suicidal ideation: No Patient has homicidal ideation: No - Past Medical History Cardiac Medical History: Reports: Hx Hypertension - Currently untreated Pulmonary Medical History: Reports: Hx Bronchitis, Hx Sleep Apnea Renal/ Medical History: Denies: Hx Peritoneal Dialysis Musculoskeletal Medical History: Reports Hx Arthritis, Reports Hx Musculoskeletal Deformity, Reports Hx Musculoskeletal Trauma Traumatic Medical History: Reports: Hx Fractures - 5th toe Past Surgical History: Reports: Other - Pilonidal cyst removal - Immunizations Hx Diphtheria, Pertussis, Tetanus Vaccination: Yes Review of Systems - Review of Systems Constitutional: No symptoms reported EENT: No symptoms reported Cardiovascular: No symptoms reported Respiratory: No symptoms reported Gastrointestinal: See HPI Genitourinary: No symptoms reported Musculoskeletal: No symptoms reported Skin: No symptoms reported Neurological/Psychological: No symptoms reported Physical Exam - Vital signs Vitals: Temp Pulse Resp BP Pulse Ox 97.7 F 70 22 H 186/120 H 99 08/09/19 17:43 08/09/19 17:43 08/09/19 17:43 08/09/19 17:43 08/09/19 17:43 - Notes Notes: Vital signs reviewed, please refer to chart. Head is normocephalic, atraumatic. Pupils equal round, reactive to light. Oral mucosa is moist. Uvula is midline. Pharynx is without exudate or erythema. Neck is supple without meningismus. He does have some tenderness to palpation at the base of the occiput on the right which re-creates his pain. Heart is regular rate and rhythm. Lungs are clear to auscultation bilaterally. Abdomen is soft, nontender, normoactive bowel sounds throughout. Extremities without cyanosis, clubbing. Posterior calves are nontender. Peripheral pulses are equal. Skin is warm and dry. Patient is awake, alert, oriented x3. Cranial nerves II - XII are grossly intact without focal neurological deficits. Strength is plus 5 out of 5 bilateral upper and lower extremities. Sensation is intact. Reflexes symmetrical. Intact [id number], rapid alternating movements, [id number]. Course - Re-evaluation Re-evalutation: 08/09/19 20:50 Patient presents emergency department for evaluation. His blood pressure is markedly elevated. We discussed this. He states he always has "triple over triple" blood pressure measurements. The importance of taking medication as prescribed, continuing to log his blood pressures, and close follow-up was stressed to the patient. He voiced understanding. Otherwise I will treat him with Toradol, Reglan, Benadryl, fluids. I suspect this is a tension headache. He is already on Flexeril and Motrin at home. He is told to add moist heat to the painful area in the base of his neck. Gentle stretching. He may respond to physical therapy, as he already has chronic back issues for which he takes these medications. Otherwise again he is urged to take his blood pressure medicines and follow-up with [facility]. He is to return to the ED with worsening. - Vital Signs Vital signs: Temp Pulse Resp BP Pulse Ox 99.2 F 70 22 H 186/120 H 99 08/09/19 20:06 08/09/19 17:43 08/09/19 17:43 08/09/19 17:43 08/09/19 17:43 - Laboratory Result Diagrams: 08/09/19 18:10 08/09/19 18:10 Laboratory results interpreted by me: 08/09/19 08/09/19 18:10 18:10 WBC 11.6 H Leukocyte Esterase Rfl MODERATE H Discharge - Discharge Clinical Impression: Elevated blood pressure reading with diagnosis of hypertension Tension type headache Qualifiers: Headache chronicity pattern: acute headache Condition: Stable Disposition: HOME, SELF-CARE Instructions: Toradol Injection ([facility]), Tension Headache ([facility]) Additional Instructions: Rest, stay well-hydrated. Moist heat to the painful area in the base of your neck. Continue your Motrin and Flexeril. You may discuss referral on to physical therapy to help you with both your back and your tension headache issues. It is strongly recommended that you take your blood pressure medication as prescribed, continue to keep a log of your blood pressures, and follow-up closely with primary care. Return to the emergency department if you develop worsening or new concerning symptoms of any sort. Forms: Elevated Blood Pressure Referrals: KOURTNEY GRIFFITHS PA-C [Primary Care Provider] - Follow up as needed
[2019-08-09 22:59] VITALS: BP 185/126
== END 2019-08-09 23:08 | disposition home or self-care (01) ==
LOC: ER 17:26
DX: G44.209 Tension-type headache, unspecified, not intractable (principal); I10 Essential (primary) hypertension
CPT/HCPCS: 36415; 87086; 83690; 85025; 80053; 81001; J1200; J1885; J2765; J7030; 96361; 96374; 96375; 99284

== ENCOUNTER 2019-10-19 07:47 | Emergency (ER) | payer MEDICAID ==
[2019-10-19] MEDS ORDERED: PREDNISONE 20 MG TABLET PO ONE (09:39)
[2019-10-19] MEDS ORDERED: KETOROLAC TROMETHAMINE 60 MG/2 ML SDV IM ONE (09:39)
[2019-10-19 10:15] VITALS: BP 132/84
--- NOTE | 2019-10-19 10:17 | ER Document Report ---
Entered by JOSEP ABRAHAM SCRIBE 10/19/19 0930 Acting as scribe for:LAYA CARPENTER MD ED General - General Chief Complaint: Back Pain Stated Complaint: BACK PAIN Time Seen by Provider: 10/19/19 09:28 Primary Care Provider: KOURTNEY GRIFFITHS PA-C [Primary Care Provider] - Follow up as needed Mode of Arrival: Ambulatory Information source: Patient Notes: This 29 year old male patient with a history of chronic back pain presents to the ED today with complaints of lower back pain that began x5 days ago. Patient states that he was at work when he turned wrong and his back locked up, stating he felt his "disc slipping and hit a nerve". Patient reports a sharp shooting pain to his right leg and neck pain. Patient states that he has had similar symptoms before about x1-2 months ago and that he usually takes Flexeril and CBD oil with little relief, but these symptoms are worse. Patient notes that he has had an epidural injection into his spine and hip in the past that has relieved his symptoms temporarily. TRAVEL OUTSIDE OF THE [place] IN LAST 30 DAYS: No - Related Data Allergies/Adverse Reactions: No Known Allergies Allergy (Verified 08/09/19 18:00) Past Medical History - General Information source: Patient - Social History Smoking Status: Current Every Day Smoker Cigarette use (# per day): Yes Chew tobacco use (# tins/day): No Smoking Education Provided: No Frequency of alcohol use: Social Drug Abuse: Marijuana Family History: Reviewed & Not Pertinent, Hypertension Patient has suicidal ideation: No Patient has homicidal ideation: No - Past Medical History Cardiac Medical History: Reports: Hx Hypertension - Currently untreated Pulmonary Medical History: Reports: Hx Bronchitis, Hx Sleep Apnea Musculoskeletal Medical History: Reports Hx Arthritis, Reports Hx Musculoskeletal Deformity, Reports Hx Musculoskeletal Trauma Traumatic Medical History: Reports: Hx Fractures - 5th toe Past Surgical History: Reports: Other - Pilonidal cyst removal - Immunizations Hx Diphtheria, Pertussis, Tetanus Vaccination: Yes Review of Systems - Review of Systems Constitutional: No symptoms reported EENT: No symptoms reported Cardiovascular: No symptoms reported Respiratory: No symptoms reported Gastrointestinal: No symptoms reported Genitourinary: No symptoms reported Male Genitourinary: No symptoms reported Musculoskeletal: See HPI, Back pain, Neck pain, Other - Leg pain Skin: No symptoms reported Hematologic/Lymphatic: No symptoms reported Neurological/Psychological: No symptoms reported -: Yes All other systems reviewed and negative Physical Exam - Vital signs Vitals: Temp Pulse Resp BP Pulse Ox 99.1 F 80 18 146/87 H 93 10/19/19 07:50 10/19/19 07:50 10/19/19 07:50 10/19/19 07:50 10/19/19 07:50 - General General appearance: Appears well, Alert - HEENT Head: Normocephalic, Atraumatic Eyes: Normal Pupils: PERRL Neck: Other - Tenderness with palpation over base of neck. - Respiratory Respiratory status: No respiratory distress Chest status: Nontender Breath sounds: Normal Chest palpation: Normal - Cardiovascular Rhythm: Regular Heart sounds: Normal auscultation Murmur: No - Abdominal Inspection: Normal Distension: No distension Bowel sounds: Normal Tenderness: Nontender Organomegaly: No organomegaly - Back Back: Tender - Tenderness over the paraspinal processes in the lower back with palpation. Tenderness in the right sacral buttock region and midthoracic region. - Extremities General upper extremity: Normal inspection General lower extremity: Normal inspection - Neurological Neuro grossly intact: Yes - Psychological Associated symptoms: Normal affect, Normal mood - Skin Skin Temperature: Warm Skin Moisture: Dry Skin Color: Normal Course - Vital Signs Vital signs: Temp Pulse Resp BP Pulse Ox 98.0 F 76 16 132/84 H 100 10/19/19 10:10 10/19/19 10:10 10/19/19 10:10 10/19/19 10:10 10/19/19 10:10 Discharge - Discharge Clinical Impression: Acute exacerbation of chronic low back pain Condition: Stable Disposition: HOME, SELF-CARE Additional Instructions: Low Back Pain Three out of every four people will have an episode of disabling back pain during their lifetime. Most commonly the pain is due to straining of the muscles and ligaments in the low back. Usual treatment includes: (1) Rest on a firm surface. Avoid lying on your stomach. (2) Ice pack the painful area. After a few days, gentle heat may be used intermittently to relax the area, or ice packs can be continued. (3) Medication may be needed -- muscle relaxers and antiinflammatory medicines are commonly used. (4) As the back improves, exercises are prescribed to strengthen the back and abdominal muscles. Your doctor will advise you on the proper care for your back at each stage in your recovery. You may be better in a few days -- or healing may take several weeks. If new symptoms of a "herniated disc" (radiation of pain, numbness, or tingling down the back of the leg or weakness in the leg) occur, you should be re-examined. Further testing may be necessary. Continue taking your Flexeril and meloxicam. Start the prednisone tomorrow. Follow-up with your primary care provider if not improving. RETURN TO THE EMERGENCY ROOM IF ANY NEW OR WORSENING SYMPTOMS. Prescriptions: Prednisone [Deltasone 10 mg Tablet] 10 mg PO ASDIR PRN #21 tablet PRN Reason: Forms: Return to Work Referrals: KOURTNEY GRIFFITHS PA-C [Primary Care Provider] - Follow up as needed Scribe Attestation: 10/19/19 09:40 I personally performed the services described in the documentation, reviewed and edited the documentation which was dictated to the scribe in my presence, and it accurately records my words and actions. I personally performed the services described in the documentation, reviewed and edited the documentation which was dictated to the scribe in my presence, and it accurately records my words and actions.
== END 2019-10-19 10:10 | disposition home or self-care (01) ==
LOC: ER 07:47
DX: M54.5 Low back pain (principal); G89.29 Other chronic pain; M79.604 Pain in right leg; M54.9 Dorsalgia, unspecified; M54.2 Cervicalgia; Z79.899 Other long term (current) drug therapy; F17.210 Nicotine dependence, cigarettes, uncomplicated; I10 Essential (primary) hypertension
CPT/HCPCS: 99283; 96372; J1885; J7512

== ENCOUNTER 2019-11-10 07:23 | Emergency (ER) | payer MEDICAID ==
[2019-11-10 09:26] VITALS: BP 133/76
--- NOTE | 2019-11-10 10:06 | ER Document Report ---
ED Fall - General Chief Complaint: Fall Stated Complaint: FALL/BACK PAIN Time Seen by Provider: 11/10/19 08:49 Primary Care Provider: KOURTNEY GRIFFITHS PA-C [Primary Care Provider] - Follow up as needed Mode of Arrival: Wheelchair Information source: Patient TRAVEL OUTSIDE OF THE [place] IN LAST 30 DAYS: No - HPI Notes: Patient states that this morning he fell getting out of bed. He states that he has a history of chronic back pain with herniated disc. He states he has been treated by a chiropractor and has been referred to a surgeon in [place]. He states that after he fell this morning he had an exacerbation of his chronic back pain and sciatica. He states that he tried to get up but immediately fell back down. He states he then had to have his family help him. He complains of severe low back pain. It is constant. Is worse with movement and better with rest. It does radiate down the right leg. He denies any problems with urination or bowel movements. He denies any abnormal sensations around the perineum or rectal area. Patient states he has had multiple MRIs which show the disc herniation. - Related data Allergies/Adverse Reactions: No Known Allergies Allergy (Verified 11/10/19 07:30) Past Medical History - General Information source: Patient - Social History Smoking Status: Current Every Day Smoker Frequency of alcohol use: None Drug Abuse: Marijuana Family History: Reviewed & Not Pertinent, Hypertension Patient has suicidal ideation: No Patient has homicidal ideation: No - Past Medical History Cardiac Medical History: Reports: Hx Hypertension - taking BP meds Pulmonary Medical History: Reports: Hx Bronchitis, Hx Sleep Apnea Renal/ Medical History: Denies: Hx Peritoneal Dialysis Musculoskeletal Medical History: Reports Hx Arthritis, Reports Hx Musculoskeletal Deformity, Reports Hx Musculoskeletal Trauma Traumatic Medical History: Reports: Hx Fractures - 5th toe Past Surgical History: Reports: Other - Pilonidal cyst removal - Immunizations Hx Diphtheria, Pertussis, Tetanus Vaccination: Yes Review of Systems - Review of Systems Constitutional: denies: Chills, Fever Cardiovascular: denies: Chest pain, Palpitations Respiratory: denies: Cough, Short of breath -: Yes All other systems reviewed and negative Physical Exam - Vital signs Vitals: Temp Pulse Resp BP Pulse Ox 98.6 F 87 18 133/76 H 95 11/10/19 09:24 11/10/19 09:24 11/10/19 09:24 11/10/19 09:24 11/10/19 09:24 Interpretation: Normal - General General appearance: Appears well, Alert - HEENT Head: Normocephalic, Atraumatic Eyes: Normal Pupils: PERRL - Respiratory Respiratory status: No respiratory distress Chest status: Nontender Breath sounds: Normal Chest palpation: Normal - Cardiovascular Rhythm: Regular Heart sounds: Normal auscultation Murmur: No - Abdominal Inspection: Normal Distension: No distension Bowel sounds: Normal Tenderness: Nontender Organomegaly: No organomegaly - Back Back: Tender - Diffuse lumbar tenderness to palpation. Range of motion is limited secondary to pain. Patient has positive straight leg test on the left and right. - Extremities General upper extremity: Normal inspection, Nontender, Normal color, Normal ROM, Normal temperature General lower extremity: Normal inspection, Nontender, Normal color, Normal ROM, Normal temperature, Normal weight bearing. No: Josie's sign - Neurological Neuro grossly intact: Yes Cognition: Normal Orientation: AAOx4 David Coma Scale Eye Opening: Spontaneous David Coma Scale Verbal: Oriented [place] Coma Scale Motor: Obeys Commands [place] Coma Scale Total: 15 Speech: Normal Motor strength normal: LUE, RUE, LLE, RLE Sensory: Normal - Psychological Associated symptoms: Normal affect, Normal mood - Skin Skin Temperature: Warm Skin Moisture: Dry Skin Color: Normal Course - Re-evaluation Re-evalutation: 11/10/19 10:03 Patient presents with low back pain. He does have a history of chronic pain. There is no evidence of cauda equina at this time. - Vital Signs Vital signs: Temp Pulse Resp BP Pulse Ox 98.6 F 87 18 133/76 H 95 11/10/19 09:24 11/10/19 09:24 11/10/19 09:24 11/10/19 09:24 11/10/19 09:24 Discharge - Discharge Clinical Impression: Acute low back pain with sciatica Qualifiers: Back pain laterality: right Sciatica laterality: sciatica of right side Qualified Code(s): M54.41 - Lumbago with sciatica, right side Condition: Stable Disposition: HOME, SELF-CARE Instructions: Sciatica ([facility]) Additional Instructions: Please follow-up with the surgeon as scheduled Prescriptions: Oxycodone HCl/Acetaminophen [Percocet 5-325 mg Tablet] 1 tab PO Q6 3 Days #12 tablet Forms: Return to Work Referrals: KOURTNEY GRIFFITHS PA-C [Primary Care Provider] - Follow up in 3-5 days
[2019-11-10] MEDS ORDERED: MORPHINE SULFATE 10 MG/ML INJ IM ONE (10:07)
[2019-11-10] MEDS ORDERED: KETOROLAC TROMETHAMINE 60 MG/2 ML SDV IM ONE (10:07)
== END 2019-11-10 10:30 | disposition home or self-care (01) ==
LOC: ER 07:23
DX: M54.41 Lumbago with sciatica, right side (principal); W06.XXXA Fall from bed, initial encounter; Y93.89 Activity, other specified; F17.200 Nicotine dependence, unspecified, uncomplicated; I10 Essential (primary) hypertension
CPT/HCPCS: 99283; 96372; J1885; J2270

== ENCOUNTER 2019-12-06 21:23 | Emergency (ER) | payer MEDICAID ==
[2019-12-06 21:44] VITALS: BP 135/103
[2019-12-06] MEDS ORDERED: OXYCODONE-ACETAMINOPHEN 5-325 MG TABLET PO ONE (22:18)
[2019-12-06] MEDS ORDERED: PENICILLIN V POTASSIUM 500 MG TABLET PO ONE (22:18)
[2019-12-06] MEDS ORDERED: LIDOCAINE 2% VISCOUS SOLN 15 ML UDCUP PO ONE (22:18)
--- NOTE | 2019-12-06 22:20 | ER Document Report ---
HPI - HPI Time Seen by Provider: 12/06/19 22:11 Pain Level: 5 Notes: Otherwise healthy 29-year-old male presented emergency department chief complaint of dental pain. Patient reports dental pain started to the right upper jawline about 2 days ago. He reports it is a constant throbbing pain. He believes he may have broken his tooth. He denies seeking dental care. He took his chronic pain medicine for this without relief. Past Medical History - General Information source: Patient - Social History Smoking Status: Current Every Day Smoker Frequency of alcohol use: None Drug Abuse: None Family History: Reviewed & Not Pertinent, Hypertension Patient has suicidal ideation: No Patient has homicidal ideation: No - Past Medical History Cardiac Medical History: Reports: Hx Hypertension - Currently untreated Pulmonary Medical History: Reports: Hx Bronchitis, Hx Sleep Apnea Renal/ Medical History: Denies: Hx Peritoneal Dialysis Musculoskeletal Medical History: Reports Hx Arthritis, Reports Hx Musculoskeletal Deformity, Reports Hx Musculoskeletal Trauma Traumatic Medical History: Reports: Hx Fractures - 5th toe Past Surgical History: Reports: Other - Pilonidal cyst removal - Immunizations Hx Diphtheria, Pertussis, Tetanus Vaccination: Yes Vertical Provider Document - CONSTITUTIONAL Notes: PHYSICAL EXAMINATION: GENERAL: Well-appearing, well-nourished and in no acute distress. HEAD: Atraumatic, normocephalic. EYES: Pupils equal round extraocular movements intact, conjunctiva are normal. ENT: Mild erythema surrounding tooth #1, tooth does appear to be fractured, no obvious drainable abscess. NECK: Normal range of motion LUNGS: No respiratory distress Musculoskeletal: Normal range of motion NEUROLOGICAL: Normal speech, normal gait. PSYCH: Normal mood, normal affect. SKIN: Warm, Dry, normal turgor, no rashes or lesions noted. - INFECTION CONTROL TRAVEL OUTSIDE OF THE [place] IN LAST 30 DAYS: No Course - Re-evaluation Re-evalutation: Presentation is most consistent with likely an infected tooth. Airway is patent. Vitals within normal limits. Patient is able swallow without any difficulty. There is no significant facial swelling. No evidence of Francis angina, apical abscess, or airway obstruction. Patient will be started on antibiotics. I've instructed to follow-up with dentistry as earliest ability for definitive management. At this time will discharge with return precautions and follow-up recommendations. Verbal discharge instructions given a the bedside and opportunity for questions given. Medication warnings reviewed. Patient is in agreement with this plan and has verbalized understanding of return precautions and the need for primary care follow-up in the next 24-72 hours. - Vital Signs Vital signs: Temp Pulse Resp BP Pulse Ox 98.9 F 126 H 18 135/103 H 100 12/06/19 21:42 12/06/19 21:42 12/06/19 21:42 12/06/19 21:42 12/06/19 21:42 Discharge - Discharge Clinical Impression: Pain, dental Condition: Stable Disposition: HOME, SELF-CARE Additional Instructions: You have been seen for dental pain. It is very important that you follow-up with a dentist for definitive care. Please return if you develop fever greater than 101, swelling in your face, vomiting, difficulty breathing or swallowing, or any other symptoms that are concerning to you. For pain you should take ibuprofen 800 mg every 8 hours as needed. Prescriptions: Penicillin V Potassium [Penicillin Vk 500 mg Tablet] 500 mg PO BID #20 tablet Referrals: KOURTNEY GRIFFITHS PA-C [Primary Care Provider] - Follow up as needed
== END 2019-12-06 22:51 | disposition home or self-care (01) ==
LOC: ER 21:23
DX: K08.89 Other specified disorders of teeth and supporting structures (principal); R68.84 Jaw pain; F17.200 Nicotine dependence, unspecified, uncomplicated; I10 Essential (primary) hypertension
CPT/HCPCS: 99282; J3490 ×2